=== PATIENT | male | born 1960 | race Caucasian/White ===

== ENCOUNTER 2021-11-27 13:32 | Outpatient (REF) | payer MEDICARE, MEDICAID, SELFPAY ==
--- NOTE | ~2021-11-27 | US_ITS ---
EXAMINATION: US SCROTUM CLINICAL INFORMATION: Right testicular pain. COMPARISON: None. TECHNIQUE: A sonogram of the scrotum was performed assessing campbell-scale appearance and color Doppler flow. Spectral Doppler analysis of the arterial and venous flow were performed in the testes bilaterally. FINDINGS: RIGHT: Right testicle measures 4.0 x 2.2 x 3.3 cm, volume 15.2 mL. Spectral Doppler analysis of the arterial and venous flow is normal in the right testis. Right epididymal head is normal in size. There is a small calcification in tail of epididymis measuring 0.2 x 0.2 x 0.2 cm. There is no hydrocele or varicocele seen. Right epididymal Doppler flow is normal. LEFT: Left testicle measures 4.6 x 2.3 x 2.9 cm, volume 16.0 mL. No focal testicular parenchymal lesions are visualized. Spectral Doppler analysis of the arterial and venous flow is normal in the left testis. Left epididymal head is normal in size. No left varicocele is seen. There is small amount of left hydrocele. Left epididymal Doppler flow is normal. US/US scrotum IMPRESSION: Small right hydrocele. The testes and left epididymis appear unremarkable. There is a focal calcification in the tail of right epididymis.
--- NOTE | ~2021-11-27 | XR_ITS ---
EXAMINATION: XR SHOULDER, LEFT CLINICAL INFORMATION: Left shoulder pain. COMPARISON: Radiograph of the right shoulder dated from 01/02/2019. TECHNIQUE: Four views of the left shoulder. FINDINGS: There is mild acromioclavicular osteoarthritis. Glenohumeral joint is well preserved. No fracture. Alignment is anatomic. Soft tissues are normal with no abnormal calcifications. XR/XR shoulder LT min 2V IMPRESSION: Mild acromioclavicular osteoarthritis. No fracture or malalignment.
== END 2021-11-27 13:33 | disposition home or self-care (01) ==
LOC: HO.US 13:32
PROVIDERS: Visit Provider Internal Medicine
DX: M25.512 Pain in left shoulder (principal); N50.811 Right testicular pain
CPT/HCPCS: 73030; 76870

== ENCOUNTER 2022-01-01 08:01 | Outpatient (REF) | payer MEDICARE, MEDICAID, SELFPAY ==
--- NOTE | ~2022-01-01 | XR_ITS ---
EXAMINATION: XR SHOULDER, LEFT CLINICAL INFORMATION: Pain. COMPARISON: Radiographs dated 11/27/2021. TECHNIQUE: AP neutral, scapular Y, and axillary views of the left shoulder. FINDINGS: Bony alignment and mineralization are normal. The glenohumeral joint is intact. The acromioclavicular and coracoclavicular intervals are normal. There are small calcifications seen at the rotator cuff insertion on the neutral view. There is a small distal acromial undersurface osteophyte. No fracture or dislocation is seen. There is no foreign body. No left pneumothorax is seen. XR/XR shoulder LT min 2V IMPRESSION: 1. No fracture or dislocation is seen. 2. There is mild calcific tendinitis of the left rotator cuff insertion.
== END 2022-01-01 08:02 | disposition home or self-care (01) ==
LOC: HO.HOSX 08:01
PROVIDERS: Visit Provider Physician Assistant
DX: M75.102 Unspecified rotator cuff tear or rupture of left shoulder, not specified as traumatic (principal)
CPT/HCPCS: 20610; 73030; 99202; J1040

== ENCOUNTER 2022-02-13 09:00 | Outpatient (RCR) | payer MEDICARE, MEDICAID, SELFPAY ==
[2022-02-05 08:08] VITALS: BP 120/72; PULSE 87
--- NOTE | 2022-02-05 09:08 | MHC.PT.EP ---
[facility] [place] Office [place] Office [place] Office [address] Kj Castellano [address] [phone] F: [phone] F: [phone] F: [phone] F: [phone] Physical Therapy Plan of Care Date of Evaluation: Date of Surgery: NA Diagnosis: Unspecified rotator cuff tear or rupture of L akhiler, not specified as traumatic Assessment: Lee is a 62 year old male who is referred to PT for unspecified rotator cuff tear or rupture of L corby . Lee reports of having sudden onset shoulder pain about 4 months back. He denies any trauma or fall. Per pt his pain has gotten worse and the cortisone shot has not helped him. On PT examination he presents with generalized ache over L shoulder, 6/10 pain at rest and 10/10 with activities, decreased shoulder ROM and strength, and altered posture. Due to these impairments he has difficulty performing his ADLS and modifies them. He is currently awaiting MRI for shoulder. He would benefit from skilled PT to address the aforementioned impairments and improve tolerance to functional activities. Frequency and Duration: The patient will be seen 2/week for 5 weeks Short Term Goals: 1. Pt will have 50% decrease in pain which will enable him to sleep through night in 2 weeks. 2. Pt will be able to move L shoulder through all planes of motion without pain which will enable him to dress his upper body in 3 weeks. Senior Product Consultant Goals: 1. Pt will demonstrate an increase in muscle strength by 1 grade which will enable him to lift pots and pans without pain in 5 weeks. 2. Pt will be independent with [facility] for symptom management and maintenance following d/c in 5 weeks. Treatment Plan: Modalities to reduce pain, spasms and effusion. Manual therapy to restore motion and function. Therapeutic exercise to improve strength and flexibility. Neuromuscular re-education for posture and balance. Therapeutic activities to return to functional activities of daily living. Electronically signed by: Margo Velez PT DPT Please sign and return to therapist. Thank you for your referral.
--- NOTE | 2022-03-21 08:36 | MHC.PT.DC ---
[facility] [place] Office [place] Office [place] Office [address] Kj Castellano [address] [phone] F: [phone] F: [phone] F: [phone] F: [phone] Physical Therapy Discharge Report Diagnosis: Unspecified rotator cuff tear or rupture of L ramseslder, not specified as traumatic Date of Surgery: NA Date of Evaluation: 02/05/22 Date of Discharge: 03/21/22 Treatments to Date: 2 Cancellations to Date: 0 No Shows to Date: Discharge Status: Patient Elected to Stop Discharge Summary: Lee arrived for his second visit of PT and stated that he would like to stop doing PT until he has an MRI. He self d/c. Electronically signed by: Margo Velez, PT DPT Please sign and return to therapist. Thank you for your referral.
== END 2022-03-28 13:52 | disposition home or self-care (01) ==
LOC: HO.PT 09:00
PROVIDERS: PCP Internal Medicine; Visit Provider Physician Assistant
DX: M75.102 Unspecified rotator cuff tear or rupture of left shoulder, not specified as traumatic (principal)
CPT/HCPCS: 97112; 97161

== ENCOUNTER 2022-04-02 14:29 | Outpatient (REF) | payer MEDICARE, MEDICAID, SELFPAY ==
--- NOTE | ~2022-04-02 | MR_ITS ---
EXAMINATION: MR SHOULDER WITHOUT CONTRAST, LEFT CLINICAL INFORMATION: Left shoulder pain. Decreased range of motion. COMPARISON: Left shoulder radiographs dated 01/01/2022. TECHNIQUE: Multisequence MR imaging of the left shoulder was obtained without contrast on a high-field strength scanner. FINDINGS: ROTATOR CUFF: Intact. No muscle atrophy or fatty infiltration. BICEPS: Intact proximal long head biceps tendon. Mild fluid within the tendon sheath consistent with mild tenosynovitis. CORACOACROMIAL ARCH: The undersurface of the acromion is minimally curved with no subacromial spur. Prominent acromioclavicular marginal osteophytes and trace joint effusion. LABRUM/CAPSULE: No displaced labral tear. Mild capsular thickening and edema which can be seen in the setting of adhesive capsulitis. GLENOHUMERAL JOINT/MARROW: Unremarkable. MR/MR shoulder LT wo con IMPRESSION: 1. Mild capsular thickening and edema which can be seen in the setting of adhesive capsulitis. 2. Mild proximal long head biceps tenosynovitis. No transverse tendon tear or tendon retraction. 3. [id number] acromioclavicular osteoarthritis.
== END 2022-04-02 14:30 | disposition home or self-care (01) ==
LOC: HO.MRI 14:29
PROVIDERS: Visit Provider Internal Medicine
DX: M25.512 Pain in left shoulder (principal)
CPT/HCPCS: 73221

== ENCOUNTER → 2022-05-04 10:36 | Outpatient (BNVA) | payer MEDICARE, MEDICAID, SELFPAY | PROVIDERS: PCP Internal Medicine; Visit Provider Physician Assistant | DX: M75.102 Unspecified rotator cuff tear or rupture of left shoulder, not specified as traumatic (principal) | CPT/HCPCS: 99212; J1040 ==

== ENCOUNTER 2022-08-17 13:39 | Outpatient (REF) | payer MEDICARE, MEDICAID, SELFPAY ==
--- NOTE | ~2022-08-17 | CT_ITS ---
EXAMINATION: CT CHEST SCREENING CLINICAL INFORMATION: F17.210 - Nicotine dependence, cigarettes, uncomplicated. Age 62. 48 pack years. COMPARISON: Chest radiographs 09/08/2006. TECHNIQUE: Multidetector volumetric CT imaging of the chest is performed without contrast using low dose technique. Additional 2D coronal and sagittal reformatted images and axial 3D maximum intensity projection (MIP) images are generated on the CT workstation. This CT examination was performed using dose optimization techniques as appropriate, variously including the following: *Automated exposure control *Adjustment of mA and/or kV according to patient size (this includes techniques or standardized protocols for targeted exams where dose is matched to indication/reason for exam; i.e. extremities or head) *Use of iterative reconstruction technique DLP: 51 mGy-cm FINDINGS: LUNGS: There is no mass or pulmonary nodule. No airspace consolidation or groundglass opacity. Bilateral predominantly upper zone centrilobular emphysematous changes are present, slightly greater on the right. There are some small bilateral subpleural apical blebs. No hyperinflation. There is mild bronchiolar wall thickening bilateral perihilar regions. No bronchiectasis. No endobronchial lesion. MEDIASTINUM: No hilar or mediastinal adenopathy. Thoracic aorta normal in caliber. Heart size normal. No pericardial effusion. CORONARY ARTERY CALCIFICATION: Present. PLEURA: There is no pleural effusion. No pleural mass or thickening. AXILLA: No lymphadenopathy. UPPER ABDOMEN: Unremarkable OSSEOUS STRUCTURES: Unremarkable. CT/CT lung screening IMPRESSION: -No pulmonary nodule, mass, or groundglass opacity. -Upper zone centrilobular emphysematous changes. Subpleural apical blebs. -Mild bronchiolar wall thickening. No bronchiectasis. ASSESSMENT: Lung-RADS category 1: Negative RECOMMENDATION: Routine annual low-dose CT screening in 12 months.
== END 2022-08-17 13:40 | disposition home or self-care (01) ==
LOC: HO.CT 13:39
PROVIDERS: PCP Internal Medicine; Visit Provider Physician Assistant Medical
DX: F17.210 Nicotine dependence, cigarettes, uncomplicated (principal)
CPT/HCPCS: 71271; G0296

== ENCOUNTER 2023-05-01 12:42 | Outpatient (AMB) | payer MEDICARE, MEDICAID, SELFPAY ==
--- NOTE | 2023-05-01 12:47 | MHC.OFFVIS ---
Intake Vital Signs 05/01/23 12:50 Height 5 ft 7 in Weight 180 lb BMI 28.2 BP 114/63 Blood Pressure Location Lt brachial Position Sitting Pulse 99 Intake Visit Reasons: Colonoscopy Screening +Cologuard Intake Note: Patient new consult for pre colonoscopy screening. Patient cc: positive cologuard, and denies any GI issues. Licensing Court Magistrate Required: No Accompanied by: Self / Same As Patient Allergies No Known Allergies [No Known Allergies*] Allergy (Verified 05/01/23 12:47) Medication List - Last Reconciled 05/01/23 by Robina Zuniga PA-C hydroxyzine HCl 25 mg PO BID lisinopril-hydrochlorothiazide 10-12.5 mg 1 tab PO DAILY oxycodone-acetaminophen 5-325 mg 1 tab PO QID PRN HPI HPI Comments History of Present Illness Details A 63 y/o male with positive cologuard - he says his insurance rejected a colonoscopy- had cologuard-no GI complaints No known family history of GI cancer Bowels are normal- Appetite is good His has been ill- multiple cancers No nausea, vomiting, hematemesis, hematochezia fever or chills PFSH Medical History (Updated 05/02/23 @ 13:55 by Robina Zuniga PA-C) Nicotine dependence, cigarettes, uncomplicated High blood pressure Surgical History History of right knee surgery Social History Patient Tobacco Use Status: Current everyday Tobacco user Tobacco use type: Cigarette Years Smoked: onset 18yo, 1ppd x 44yrs, 40PYH Current occupational status: disabled Current occupation: left handed Review of Systems Const All systems reviewed & are unremarkable except as noted in HPI and below Card Denies chest pain and Denies dyspnea Resp Denies dyspnea GI Denies abdominal pain, Denies change in bowel habits, Denies heartburn, Denies diarrhea, Denies nausea and Denies vomiting Physical Exam Vital Signs: Last Vital Signs Pulse 99 05/01/23 12:50 BP 114/63 05/01/23 12:50 BMI result Body Mass Index 28.2 Const General: cooperative, healthy appearing and comfortable Orientation/consciousness: patient oriented x3 Limitations: no limitations Eyes Sclerae: sclerae normal Resp Effort & Inspection: normal respiratory effort and able to speak in complete sentences Auscultation: clear to auscultation bilaterally, no rales, no rhonchi and no wheezes Cardio Rate: regular rate (APR 100-) Rhythm: regular rhythm Heart sounds: S1 normal heart sound present and S2 normal heart sound present GI Palpation (GI): Soft to palpation and nontender Auscultation: normal bowel sounds Skin General skin exam: no rashes or lesions noted Neuro General: patient oriented x3 Extrem General: Yes full ROM Psych Appearance: grossly normal and well kempt Mental Status: mental status grossly normal Speech and movement: Normal speech and movement present and Clear speech present Affect: normal affect Attitude: cooperative Thought process: Normal thought process present Thought content: Normal thought content present Insight: Good insight present (Psych) Judgement: Good judgement present (Psych) Assessment & Plan Assessment & Plan (1) Positive colorectal cancer screening using Cologuard test: Comment: Of Cologuard- Code(s): R19.5 - Other fecal abnormalities Plan: Colonoscopy Plan Colonoscopy- MG prep Orders: Orders Colonoscopy - GI Use Only 05/01/23 R19.5 - Other fecal abnormalities Medications: New polyethylene glycol 3350 (Miralax) Take as directed by mouth the day before your procedure. 238 grams PO ONCE 1 day PRN 238 grams 0RF laxative effect bisacodyl (Dulcolax (bisacodyl)) Day before procedure, prep day Take 4 tablets by mouth upon awakening followed by large glass of water 20 mg (4 x 5 mg) PO ONCE 1 day 4 tabs 0RF colonoscopy prep Z12.11 - Encounter for screening for malignant neoplasm of colon Patient Instructions: Pleasant 61-year-old Gent referred with after positive Cologuard He has no GI symptoms or concerns Family history of GI cancer Opportunity for questions answered to his satisfaction Review Cologuard results positive however needs to have further evaluation-there are certain percentage of follows positives as well as false negatives He is agreeable to colonoscopy, discussed procedure, rare risks, need for escorted due to anesthesia and prep literature given Reassurance offered Encouraged to call questions or concerns Coding Level of Care Code New Pt Level 3 (77412) Diagnoses Positive colorectal cancer screening using Cologuard test R19.5 Time Spent (min) 30
[2023-05-01 12:50] VITALS: BP 114/63; PULSE 99; BMI 28.2
== END 2023-05-01 13:50 | disposition home or self-care (01) ==
PROVIDERS: PCP Internal Medicine; Visit Provider Physician Assistant
DX: R19.5 Other fecal abnormalities (principal)
CPT/HCPCS: 99203; 99213

== ENCOUNTER → 2023-05-01 12:42 | Outpatient (BNVA) | payer MEDICARE, MEDICAID, SELFPAY | PROVIDERS: PCP Internal Medicine; Visit Provider Physician Assistant | DX: R19.5 Other fecal abnormalities (principal) | CPT/HCPCS: 99202 ==

== ENCOUNTER 2023-08-22 09:43 | Day surgery (SDC) | payer MEDICARE, MEDICAID, SELFPAY ==
[2023-08-20 14:28] VITALS: BMI 28.2
--- NOTE | 2023-08-21 10:51 | HO.ANESPROP2 ---
Documented by User: Nadira Brasher NP 08/21/23 10:52 HPI - Anesthesia Eval Consult details Narrative: 63yo M for Colonoscopy PMFSH Active Problems Active Problems: All Active Problems (Updated 05/02/23 @ 13:55 by Robina Zuniga PA-C) Positive colorectal cancer screening using Cologuard test (Acute) Nicotine dependence, cigarettes, uncomplicated (Acute) Painful arc syndrome of left shoulder (Acute) Past Medical History Medical History Nicotine dependence, cigarettes, uncomplicated High blood pressure Surgical History Surgical History History of right knee surgery Social History Social History Patient Tobacco Use Status: Current everyday Tobacco user Tobacco use type: Smokeless Tobacco Years Smoked: onset 18yo, 1ppd x 44yrs, 40PYH Current occupational status: disabled Current occupation: left handed Meds Allergies Allergy/AdvReac Type Severity Reaction Status Date / Time No Known Allergies Allergy Verified 05/01/23 12:47 [No Known Allergies*] Home Medications Medication Instructions Recorded Confirmed Last Taken Type lisinopril 10 1 tab PO DAILY 01/01/22 08/20/23 08/22/23 History mg-hydrochlorothiazide 12.5 mg tablet oxycodone-acetaminophen 5 mg-325 1 tab PO QID PRN Pain 01/01/22 08/20/23 Unknown History mg tablet Exam Height,Weight and Vital Signs: Height 5 ft 7 in Weight 81.647 kg Assessment and Plan Assessment Anesthesia Assessment: Chart Reviewed Documented by User: Mahi Marie MD 08/22/23 13:30 PMFSH Active Problems Active Problems: All Active Problems (Updated 05/02/23 @ 12:14 by Mahi Marie MD) Positive colorectal cancer screening using Cologuard test (Acute) Nicotine dependence, cigarettes, uncomplicated (Acute) Painful arc syndrome of left shoulder (Acute) HTN Back and neck pain Past Medical History Medical History Nicotine dependence, cigarettes, uncomplicated High blood pressure Family History Family history of problems with anesthesia: No Surgical History Surgical History History of right knee surgery History of Problems with Anesthesia: No Social History Social History Patient Tobacco Use Status: Current everyday Tobacco user Tobacco use type: Smokeless Tobacco Years Smoked: onset 18yo, 1ppd x 44yrs, 40PYH Current occupational status: disabled Current occupation: left handed Meds Allergies Allergy/AdvReac Type Severity Reaction Status Date / Time No Known Allergies Allergy Verified 05/01/23 12:47 [No Known Allergies*] Home Medications Medication Instructions Recorded Confirmed Last Taken Type lisinopril 10 1 tab PO DAILY 01/01/22 08/20/23 08/22/23 History mg-hydrochlorothiazide 12.5 mg tablet oxycodone-acetaminophen 5 mg-325 1 tab PO QID PRN Pain 01/01/22 08/20/23 Unknown History mg tablet Exam Height,Weight and Vital Signs: Height 5 ft 7 in Weight 81.647 kg Vital Signs Temp Pulse Resp BP Pulse Ox O2 Del Method O2 Flow Rate 08/22/23 13:22 73 16 154/87 H 98 Room Air 08/22/23 13:07 97 F 78 16 165/89 H 100 Simple Mask 6 08/22/23 10:29 98 F 102 H 19 117/87 97 Nasal Cannula Airway Mallampati Class: II TM Dist: >3cm Neck ROM: Full Denture: Upper and Lower Loose/Missing/Broken Teeth: Yes (Full dentures) Heart: RRR Lungs: CTAB Assessment and Plan Assessment Anesthesia Assessment: Anesthesia Plan Discussed and Chart Reviewed Final Anesthetic Review Family History of Problems with Anesthesia: No History of Problems with Anesthesia: No NPO: Yes ASA Class: II Final Preanesthetic Review: No Changes in Pt Med Stat, Meds/Allgs Chart Reviewed, Consent Obtained/Reviewed and Anes Risks/Benef Reviewed Patient Risk: Low Procedure Risk: Low Assessment/Block/Sedation in SS: Assess/Block/Sedation-SS Anesthetic Plan Anesthetic Plan: MAC: and TIVA Disposition: Standard PACU
[2023-08-22 10:29] VITALS: BP 117/87; PULSE 102; RESP 19; TEMP 36.6; O2SAT 97; BMI 28.2
[2023-08-22] MEDS: Lactated Ringers 1,000 ML 100 ML IVCONT (10:41)
--- NOTE | 2023-08-22 11:14 | MHC.SHP ---
Pre-Procedural Eval Section A - 24 Hr Update-Section A only Date of Service: 08/22/23 Section B - Complete if H&P > 30 days Chief Complaint: Other fecal abnormalities Details of Present Illness: pos cologuard Relevant Family History (Specify if Yes): No Relevant Social History: Tobacco Use (vaping ) Present Medications: see Short Stay Collaborative assessment Medical History: Significant History (htn, smoking, ) History of Previous Operations: Relevant previous surgery/procedure and date(s) ( History of right knee surgery) Allergies: Allergies Allergy/AdvReac Type Severity Reaction Status Date / Time No Known Allergies Allergy Verified 05/01/23 12:47 [No Known Allergies*] Review of Systems Sugical H&P ROS: Negative: Constitution, Cardiovascular, Respiratory, Neurological, Psychiatric, Hem-Onc, Allergic/Immunologic, Gastrointestinal, Genitourinary, Musculoskeletal, Integumentary, Endocrine and Eyes/Ears/Nose/Throat Exam Surgical H&P Exam: Normal: HEENT, Normal: Heart, Normal: Lungs, Normal: Extremities, Normal: Abdomen, Normal: Skin and Normal: Neurological Plan Diagnosis/Plan: Unchanged I have reviewed the history and physical and performed a pertinent physical examination on my patient. No changes have occurred unless specified. Time Spent With Patient Time: Total time managing care of this patient today ____ minutes.
--- NOTE | 2023-08-22 13:02 | P.OP_ITS ---
Operative Note Operative Note Date of Service: 08/22/23 Narrative: Operative Information Procedure Description: Colonoscopy Indication: pos cologuard Anesthesia: MAC COLONOSCOPY Instrument: Olympus variable stiffness pediatric scope 190L Colonoscopy Monitoring: Vital signs and clinical assessment, continuous EKG monitoring, Pulse oximetry, Carbon Dioxide monitoring and blood pressure monitoring were done throughout the procedure. Colon withdrawal time was 15 minutes. Procedure: The patient was placed in the left lateral decubitis position and pre-procedure medications were administered. After a digital rectal examination of the ano-rectum, the video colonoscope was inserted into the rectum and advanced through the colon to the cecum/TI. The colonoscope was slowly withdrawn in a retrograde panoramic fashion and the colon mucosa was carefully examined including a retroflexed view of the rectum. Findings and interventions are described below. Procedure Difficulty: easy Findings: Terminal Ileum-normal Cecum: flat polyp 10 mm raised with eleview and then removed with cold snare Right sided retroflexion- normal Ascending Colon: normal Transverse Colon -normal Descending Colon:normal Sigmoid Colon: mild diverticulosis, 10 mm sessile polyp removed with cold snare Rectum: Retroflexion with medium sized internal hemorrhoids, grade I Anorectum - normal Colon preparation: [place] Bowel Preparation Scale Right colon; 2 Transverse colon: 3 Left colon; 3 (0 = Unprepared colon segment with mucosa not seen due to solid stool that cannot be cleared. 1 = Portion of mucosa of the colon segment seen, but other areas of the colon segment not well seen due to staining, residual stool and/or opaque liquid. 2 = Minor amount of residual staining, small fragments of stool and/or opaque liquid, but mucosa of colon segment seen well. 3 = Entire mucosa of colon segment seen well with no residual staining, small fragments of stool or opaque liquid) Impression and Post Procedure Diagnosis: polyps internal hemorrhoids diverticular disease Plan: High fiber diet leaflet Avoid straining at stool, epsom salts and sitz bath, anusol supps or cream Repeat Colonoscopy in 5 years due to polyps or earlier if clinically indicated Above findings were reviewed with the patient and relevant handouts were provided if indicated.
[2023-08-22 13:07] VITALS: BP 165/89; PULSE 78; RESP 16; TEMP 36.1; O2SAT 100
[2023-08-22 13:22] VITALS: BP 154/87; PULSE 73; RESP 16; O2SAT 98
[2023-08-22 13:37] VITALS: BP 152/74; PULSE 76; RESP 16; TEMP 36.2; O2SAT 98
[2023-08-22 13:53] VITALS: BP 148/71; PULSE 76; RESP 16; TEMP 36.2; O2SAT 98
== END 2023-08-22 14:11 | disposition home or self-care (01) ==
PROVIDERS: PCP Internal Medicine; Visit Provider Internal Medicine Gastroenterology
PROC: 0DJD8ZZ Inspection of Lower Intestinal Tract, Via Natural or Artificial Opening Endoscopic (ICD-10-PCS; CPT 45378; principal; 2023-08-22 12:30)
DX: D12.0 Benign neoplasm of cecum (principal); D12.5 Benign neoplasm of sigmoid colon; K57.30 Diverticulosis of large intestine without perforation or abscess without bleeding; K64.0 First degree hemorrhoids; R19.5 Other fecal abnormalities; I10 Essential (primary) hypertension; F17.210 Nicotine dependence, cigarettes, uncomplicated
CPT/HCPCS: 45385; 45381; 88305; J2704

== ENCOUNTER → 2023-08-22 09:43 | Outpatient (BNV) | payer MEDICARE, MEDICAID, SELFPAY | PROVIDERS: PCP Internal Medicine; Visit Provider Internal Medicine Gastroenterology | DX: Z12.11 Encounter for screening for malignant neoplasm of colon (principal); R19.5 Other fecal abnormalities; D12.0 Benign neoplasm of cecum; D12.5 Benign neoplasm of sigmoid colon | CPT/HCPCS: 45381; 45385 ==

== ENCOUNTER 2023-08-31 07:38 | Outpatient (REF) | payer MEDICARE, MEDICAID, SELFPAY ==
--- NOTE | ~2023-08-31 | XR_ITS ---
EXAMINATION: XR RIBS, RIGHT WITH AP CHEST CLINICAL INFORMATION: Right rib cage pain status-post fall. COMPARISON: Chest radiographs dated 09/08/2006. TECHNIQUE: 5 views of the right ribs were obtained, together with a frontal view of the chest. FINDINGS: Lungs are clear. No consolidation, pneumothorax, or pleural effusion. The cardiomediastinal silhouette and pulmonary vasculature are normal. Mildly displaced fractures are suspected of the right fifth through seventh ribs on one of the oblique views there is mild associated periosteal reaction. XR/XR ribs RT min 3V w CXR1V IMPRESSION: Mildly displaced fractures are suspected of the right fifth through seventh ribs, with mild associated periosteal reaction. No pleural effusion or pneumothorax is seen.
--- NOTE | ~2023-08-31 | XR_ITS ---
EXAMINATION: XR SHOULDER, RIGHT CLINICAL INFORMATION: Pain status-post fall. COMPARISON: Radiographs dated 01/02/2019. TECHNIQUE: AP external rotation, Grashey, scapular Y, and axillary views of the right shoulder. FINDINGS: Bony alignment and mineralization are normal. The glenohumeral joint is intact. The acromioclavicular and coracoclavicular intervals are normal. There is mild osteoarthritic change of the acromioclavicular joint. There is a distal acromial undersurface osteophyte, and there is subcortical sclerosis of the greater tuberosity of the proximal right humerus. No soft tissue calcification or foreign body is seen. There is no right pneumothorax. XR/XR shoulder RT min 2V IMPRESSION: 1. There is mild osteoarthritic change of the right acromioclavicular joint. 2. Findings suggest mild right rotator cuff impingement, without claudia calcific tendinitis noted.
== END 2023-08-31 07:39 | disposition home or self-care (01) ==
LOC: HO.XRAY 07:38
PROVIDERS: PCP Internal Medicine; Visit Provider Internal Medicine
DX: M25.511 Pain in right shoulder (principal); R07.81 Pleurodynia
CPT/HCPCS: 71101; 73030

== ENCOUNTER 2024-01-06 07:58 | Outpatient (REF) | payer MEDICARE, MEDICAID, SELFPAY ==
--- NOTE | ~2024-01-06 | CT_ITS ---
EXAMINATION: CT LOW-DOSE SCREENING CHEST WITHOUT CONTRAST CLINICAL INFORMATION: Nicotine dependence, cigarettes, uncomplicated. The patient has a 43 pack-year history of smoking, having quit 1 year ago. COMPARISON: CT chest 08/17/2022. TECHNIQUE: Multidetector volumetric CT imaging of the chest is performed on a Siemens SOMATOM Definition scanner without contrast using low dose technique. Additional 2D coronal and sagittal reformatted images and axial 3D maximum intensity projection (MIP) images are generated on the CT workstation. This CT examination was performed using dose optimization techniques as appropriate, variously including the following: *Automated exposure control *Adjustment of mA and/or kV according to patient size (this includes techniques or standardized protocols for targeted exams where dose is matched to indication/reason for exam; i.e. extremities or head) *Use of iterative reconstruction technique TOTAL EXAM DLP: 62 mGy-cm. CTDIvol: 1.59 mGy. FINDINGS: PULMONARY NODULES: (As seen on series 5) -There are a few tiny 2 mm calcified granulomata in both lungs, benign. -There are no right-sided pulmonary nodules. -There are no left-sided pulmonary nodules. LUNGS: -Moderate centrilobular emphysematous changes are present with upper lobe predominance. -No superimposed consolidations or abnormal groundglass opacities. -No bronchiectasis or airway abnormalities. Minimal thickening small airways, without endobronchial filling defect. Central airways patent. -No pleural effusion or pleural mass. MEDIASTINUM: -No thyroid abnormality by CT. -Aorta is normal in caliber and course with mild to moderate atheromatous calcification. No aneurysm. -Aortic 3 vessel branching pattern. -Main pulmonary artery is normal in size. -There is no suspicious mediastinal or hilar lymphadenopathy. -Heart size is normal. No pericardial effusion. -Esophagus is normal. -Trachea and main bronchi are normal. CORONARY ARTERY CALCIFICATION: Moderate to heavy three-vessel coronary calcification, most significant proximal LAD and RCA. CHEST WALL/AXILLA: No masses or abnormal lymph nodes. UPPER ABDOMEN: Included portions of the solid organs in the upper abdomen unremarkable on noncontrast imaging. OSSEOUS STRUCTURES: No suspicious lytic or blastic bone lesion. -Mild spinal degenerative changes. -Old right anterior rib fractures. CT/CT lung screening IMPRESSION: 1. Overall stable examination. No suspicious pulmonary nodules, new nodules or enlarging nodules. Scattered calcified granulomata are benign. 2. Moderate centrilobular emphysema with upper lobe predominance. 3. No active lung disease. 4. There is no suspicious lymphadenopathy. 5. Minimal small airway thickening without bronchiectasis or endobronchial filling defects. Findings may represent minimal bronchitis. 6. Additional ancillary findings as discussed in the body of the report. ASSESSMENT: 1. Lung-RADS Category 1: Negative. There are no nodules or there are definitely benign nodules. 2. Lung-RADS Category S: None. RECOMMENDATION: Continued routine annual low-dose CT lung screening in 1 year is recommended. An order for CT CHEST LOW DOSE CANCER SCREENING ([id number]) can be placed.
== END 2024-01-06 07:59 | disposition home or self-care (01) ==
LOC: HO.CT 07:58
PROVIDERS: Visit Provider Physician Assistant Medical
DX: Z12.2 Encounter for screening for malignant neoplasm of respiratory organs (principal); F17.210 Nicotine dependence, cigarettes, uncomplicated
CPT/HCPCS: 71271

== ENCOUNTER 2024-05-29 15:47 | Outpatient (REF) | payer MEDICARE, MEDICAID, SELFPAY ==
[2024-05-29 17:48] LABS: MANUAL DIFF FLAG NO
[2024-05-29 17:54] LABS: Basophils Absolute Auto 0.1 X10*3/uL (0.0-0.2); Basophils Percent Auto 1.1 % (0-2); Eosinophils Absolute Auto 0.2 X10*3/uL (0.0-0.4); Eosinophils Percent Auto 2.9 % (0-4); Hematocrit 45.7 % (42.0-52.0); Hemoglobin 15.7 g/dl (14.0-18.0); Imm Gran Abs Auto 0.03 X10*3/uL (0.00-0.03); Imm Gran Pct Auto 0.4 % (0.0-0.4); Lymphocytes Absolute Auto 1.9 X10*3/uL (1.2-4.9); Lymphocytes Percent Auto 25.2 % (20-40); Mean Corpuscular HGB Conc 34.4 g/dl (31.0-36.0); Mean Corpuscular Hemoglobin 30.8 pg (27.0-33.0); Mean Corpuscular Volume 89.8 fL (80.0-98.0); Mean Platelet Volume 10.7 fL (9.4-12.4); Monocytes Absolute Auto 0.9 X10*3/uL (0.1-1.2); Monocytes Percent Auto 11.6 % (2-11); Neutrophils Absolute Auto 4.4 x10*3/uL (2.0-8.3); Neutrophils Percent Auto 58.8 % (45-73); Platelet Count 284 X10*3/uL (160-400); Red Blood Count 5.09 X10*6/uL (4.60-5.80); Red Cell Distribution Width 11.9 % (11.0-16.0); White Blood Count 7.5 X10*3/uL (4.8-10.8)
[2024-05-29 18:11] LABS: Alanine Aminotransferase 23 U/L (0-40); Albumin Level 4.3 g/dL (3.5-5.0); Alkaline Phosphatase 27 U/L (39-117); Anion Gap 12 (12-20); Aspartate Amino Transferase 21 U/L (5-37); Bilirubin Total 0.4 mg/dL (0.0-1.0); Blood Urea Nitrogen 11 mg/dL (9-16); Carbon Dioxide 30 mmol/L (22-29); Chloride 101 mmol/L (96-108); Cholesterol 148 mg/dL (<200); Estimated Glomerular Filt Rate > 60; Glucose Random 110 mg/dL (60-115); HDL Cholesterol 35 mg/dL (>40); LDL Cholesterol Calculated 68 mg/dL (<100); Potassium 3.8 mmol/L (3.3-5.1); Sodium 139 mmol/L (135-145); Total Protein 7.5 g/dL (6.5-8.0); Triglycerides 229 mg/dL (<150)
[2024-05-29 18:26] LABS: TSH reflex Free T4 0.64 uIU/mL (0.32-4.0)
== END 2024-05-29 15:48 | disposition home or self-care (01) ==
LOC: HO.CHCLDS 15:47
PROVIDERS: Visit Provider Internal Medicine
DX: I10 Essential (primary) hypertension (principal); F41.9 Anxiety disorder, unspecified
CPT/HCPCS: 36415; 80053; 80061; 84443; 85025

== ENCOUNTER 2024-08-26 10:37 | Outpatient (REF) | payer MEDICARE, MEDICAID, SELFPAY ==
--- OUTSIDE RECORDS SUMMARY | 2024-08-26 12:39 | XMS_ITS | Encounter Summary ---
Author Organization [employer] Address [address] [facility] [address] [place] [address] Care Team Providers Care Homicide Investigator Name Role Phone Padmaja Davila MD Primary Care Provider [phone] Encounter Details Date Type Department Care Team ([facility] st Contact Info) Description 09/06/2023 Orders Only [facility] [address], [place] [phone] Padmaja Davila MD [address] [place], [place] [phone] Social History Tobacco Use Types Packs/Day Years Used Date Smoking Tobacco: Former Cigarettes 1 43 Smokeless Tobacco: Never Comments:Now vape. Has been vaping x the last 3 weeks. One Cartridge last 5 to 7 days. Alcohol Use Standard Drinks/Week Comments Not Currently 0 (1 standard drink = 0.6 oz pur e alcohol) Depression Answer Date Recorded Patient Health Questionnaire-9 Score 6 12/11/2022 Housing Stability Answer Date Recorded What is your housing situation today? I have ayla arenas 04/11/[address] you li ve. Do you have problems with any of the following? None of the above 04/11/2023 Food Insecurity Answer Date Recorded Within the past 12 months, y ou worried that your food would run out before you got money to buy more: Never True 04/11/2023 Within the past 12 months,th e food you bought just didn't last and you didn't have enough money to get more: Never True Transportation Answer Date Recorded In the past 12 months, has l ack of transportation kept you from medical appts, meetings, work or from getting things needed for daily living? No 04/11/2023 Utilities Answer Date Recorded In the past 12 months, has t he electric, gas, oil or water company threatened to shut off services in your home? No 04/11/2023 Depression Answer Date Recorded Patient Health Questionnaire-2 Score 0 12/11/2022 Sex and Gender Information Value Date Recorded Sex Assigned at Male 04/23/2022 10:18 AM EDT Legal Sex Male 10:18 AM EDT Gender Identity Male 04/23/2022 10:18 AM EDT Sexual Orientation Straight 04/23/2022 10 :18 AM EDT documented as of this encounter Plan of Treatment Upcoming Encounters Date Type Department Care Team (Late st Contact Info) Description 09/24/2024 9:00 AM EDT Clinical Support [facility] [address] [place] [address] Reba Garcia, CAROLINE [address] [place] [address] documented as of this encounter Visit Diagnoses Not on filedocumented in this encounter Additional Health Concerns Assessment Noted Time PHQ-9 Depression Total Score: 6 12/12/19 23 9:45 AM EDT documented as of this encounter Care Teams Homicide Investigator Relationship Specialty Start Date End Date Padmaja Davila MD [address] [place] [address] PCP - General Internal Medicine 11/16/11 documented as of this encounter
--- OUTSIDE RECORDS SUMMARY | 2024-08-26 12:40 | XMS_ITS | Clinical Summary ---
Author Organization [employer] Address [address] [place] [address] 7 [place] [address] Care Team Providers Care Duplicating Machine Servicer Name Role Phone Padmaja Davila MD Primary Care Provider Allergies No known active allergies Medications ibuprofen 800 MG tablet TAKE ONE TABLET TWICE DAILY NEEDED FOR PAIN 60 tablet 1 09/12/19 24 Active oxyCODONE-acetam inophen (Percocet) 5-325 MG tabletIndication s:Chronic pain syndrome TAKE ONE TABLET EVERY 6 HOURS NEEDED 84 tablet 06/23/20 24 Active oxyCODONE-acetam inophen (Percocet) 5-325 MG tabletIndication s:Chronic pain syndrome TAKE ONE TABLET EVERY 6 HOURS NEEDED 84 tablet 08/04/19 25 Active lisinopril-hydro CHLOROthiazide 10-12.5 MG tabletIndication s:Essential (primary) hypertension Take 1 tablet by mouth Once per day. 90 tablet 1 08/11/19 25 Active oxyCODONE-acetam inophen (Percocet) 5-325 MG tabletIndication s:FINANCIAL INVESTMENT ADVISER checked 05/31/22 Take 1 tablet by mouth every 6 (six) hours for 21 days. 1 tables every 6 hours as needed 84 tablet 08/25/19 25 025 Active lisinopril-hydro CHLOROthiazide 10-12.5 MG tabletIndication s:Essential (primary) hypertension TAKE ONE TABLET EVERY DAY 90 tablet 1 02/25/20 24 025 Discontinued(Re order (will not trigger notification to Pharmacy)) oxyCODONE-acetam inophen (Percocet) 5-325 MG tabletIndication s:FINANCIAL INVESTMENT ADVISER checked 05/31/22 Take 1 tablet by mouth every 6 (six) hours for 21 days. 1 tables every 6 hours as needed Do not start before July 13, 2024. 84 tablet 07/13/19 25 025 Discontinued oxyCODONE-acetam inophen (Percocet) 5-325 MG tabletIndication s:FINANCIAL INVESTMENT ADVISER checked 05/31/22 Take 1 tablet by mouth every 6 (six) hours for 21 days. 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/25/2021 Nicotine dependence 01/25/2021 Chondromalacia 06/11/2016 Old tear of medial meniscus 06/11/2016 Hypertensive disorder 07/28/2015 Backache 08/09/2011 Displacement of lumbar inter vertebral disc without myelopathy 03/05/2011 Anxiety state 11/14/2010 Pain in limb 11/14/2010 Depressive disorder 09/08/2010 Encounters Date Type Department Care Team Description 08/26/2024 9:45 AM EST Office Visit [facility] [address] [place] [address] Padmaja Davila MD Anxiety state (Primary Dx); Primary hypertension; Hypertriglyceridemia; Dietary counseling; Exercise counseling; Overweight 08/26/2024 Travel 08/24/2024 Travel 08/24/2024 Telephone [facility] [address] [place] [address] Padmaja Davila MD Appointment Request 08/24/2024 Refill [facility] [address] [place] [address] Padmaja Davila MD Chronic pain syndrome 08/19/2024 Travel 08/08/2024 Refill [facility] [address] [place] [address] Padmaja Davila MD Essential (primary) hypertension 08/06/2024 Travel 08/03/2024 Refill [facility] [address] [place], [place] [phone] Padmaja Davila MD Chronic pain syndrome 08/03/2024 Refill [facility] [address] [place] [address] Padmaja Davila MD Chronic pain syndrome 07/09/2024 Refill [facility] [address] [place] [address] Padmaja Davila MD Chronic pain syndrome 06/22/2024 Refill [facility] [address] [place] [address] Cheryle Heaton MD Chronic pain syndrome 06/22/2024 Refill [facility] [address] [place] [address] Cheryle Heaton MD Chronic pain syndrome 06/01/2024 Telephone [facility] [address] [place] [address] Padmaja Davila MD 06/01/2024 Refill [facility] [address] [place] [address] Reba Garcia RN Chronic pain syndrome 06/01/2024 Telephone [facility] [address] [place] [phone] Padmaja Davila MD Med Refill 05/29/2024 3:15 PM EST Office Visit [facility] [address] [place] [address] Padmaja Davila MD Primary hypertension (Primary Dx); Anxiety state 05/29/2024 Travel from Last 3 Months Immunizations Name Administration Dates Next Due Influenza injectable quadriv alent IIV4 with preservative 03/22/2015 Influenza injectable quadriv alent preservative free 03/13/2023,08/24/2021,06/02/2020,2018,05/31/2016 Influenza, IIV3, injectable 03/27/2018, 7,04/12/2014 Influenza, Injectable, MDCK, preservative free 05/13/2024 Influenza, Split (incl. nicolasa fied surface antigen) 05/06/2013,03/13/2012 Moderna Covid-19 Vaccine 12+ 11/10/2020,10/14/19 21 Pfizer Covid-19 Vaccine 12+ 05/13/2024 RSV Adjuvant 06/21/2023 RSV-MAB, Unspecified 06/22/2023 Td (adult), unspecified 04/24/2002 Tdap 12/27/2017,10/19/2015 Zoster, Recombinant 06/03/2019,03/25/2019 Family History Medical History Relation Name Comments Diabetes Brother Diabetes Maternal Grandmother Heart attack Mother Relation Name Status Comments Brother Maternal Grandmother Mother Social History Tobacco Use Types Packs/Day Years Used Date Smoking Tobacco: Former Cigarettes 1 43 Smokeless Tobacco: Never Tobacco Cessation:Counseling Given: Not Answered Comments:Now vape. Has been vaping x the last 3 weeks. One Cartridge last 5 to 7 days. Alcohol Use Standard Drinks/Week Comments Not Currently 0 (1 standard drink = 0.6 oz pur e alcohol) Depression Answer Date Recorded Patient Health Questionnaire-9 Score 13 08/26/2024 Patient Health Questionnaire-9 Score 13 08/26/2024 Last PHQ-9: Questionnaire Data Not on file 0 08/26/2024 Housing Stability Answer Date Recorded What is your housing situation today? I have ayla dagoberto 08/26/[address] you li ve. Do you have problems with any of the following? None of the above 08/26/2024 Food Insecurity Answer Date Recorded Within the past 12 months, y ou worried that your food would run out before you got money to buy more: Never True 08/26/2024 Within the past 12 months,th e food you bought just didn't last and you didn't have enough money to get more: Never True 10/2024 Transportation Answer Date Recorded In the past 12 months, has l ack of transportation kept you from medical appts, meetings, work or from getting things needed for daily living? No 08/26/2024 Utilities Answer Date Recorded In the past 12 months, has t he electric, gas, oil or water company threatened to shut off services in your home? No 08/26/2024 Depression Answer Date Recorded Patient Health Questionnaire-2 Score 2 08/26/2024 Internet Access Answer Date Recorded Internet Access Q1 Yes 08/26/2024 Internet Access Q2 Not on file 08/26/2024 Sex and Gender Information Value Date Recorded Sex Assigned at Male 04/23/2022 10:18 AM EDT Legal Sex Male 10:18 AM EDT Gender Identity Male 04/23/2022 10:18 AM EDT Sexual Orientation Straight 04/23/2022 10 :18 AM EDT Last Filed Vital Signs Vital Sign Reading Time Taken Comments Blood Pressure 126/75 08/26/2024 9:46 AM EST Pulse 91 08/26/2024 9:46 AM EST Temperature 36.6 ??C (97.8 ??F) 08/26/2024 9:46 AM ES T Respiratory Rate 20 08/26/2024 9:46 AM EST Oxygen Saturation 95% 08/26/2024 9:46 AM EST Inhaled Oxygen Concentration - - Weight 82.6 kg (182 lb) 08/26/2024 9:46 AM EST Height 172.7 cm (5' 8 ) 08/26/2024 9:46 AM EST Body Mass Index 27.67 08/26/2024 9:46 AM EST Plan of Treatment Upcoming Encounters Date Type Department Care Team ([facility] st Contact Info) Description 09/24/2024 9:00 AM EDT Clinical Support [facility] [address] [place] [address] Reba Garcia, RN [address] [place] [address] Health Maintenance Due Date Last Done Comments CT Colonography 1961 Colonoscopy 1961 FIT 1961 FOBT 1961 HIV Screening 1961 Sigmoidoscopy 1961 Hepatitis C Screening 1979 Hepatitis A Vaccines (1 of 2 - Risk 2-dose series) 02/03/1980 Pneumococcal Vaccine: 50+ Years (1 of 1 - PCV) 2011 Depression Monitoring (PHQ-9) 02/26/2025 08/26/2024, 08/26/2024 Alcohol/Substance Use Screening 08/26/2025 08/26/2024 Depression Screening 08/26/2025 08/26/2024, 08/27/19 25 SDOH Screening 08/26/2025 08/26/2024 Tobacco Screening 08/26/2025 08/26/2024 Colorectal Cancer Screening 04/11/2026 FIT DNA/Cologuard 04/11/2026 04/11/2023 DTaP/Tdap/Td Vaccines (3 - Td or Tdap) 12/28/2027 12/27/2017, 10/19/2015, 04/24/2002 Lipid Panel 05/29/2029 05/29/2024, 11/23, 03/07/2021, Additional history exists Zoster Vaccines Completed 06/03/2019, 03/25/2019 RSV Patients and Patients Aged 60 years or older Completed 06/21/2023 RSV under 20 months Aged Out 06/22/2023 No longe r eligible based on patient's age to complete this topic COVID-19 Vaccine Completed 05/13/2024, , 10/13/2020 Influenza Vaccine Completed 05/13/2024, , 08/24/2021, Additional history exists HIB Vaccines Aged Out No longer eligi ble based on patient's age to complete this topic HPV Vaccines Aged Out No longer eligi ble based on patient's age to complete this topic Hepatitis B Vaccines Aged Out No long er eligible based on patient's age to complete this topic IPV Vaccines Aged Out No longer eligi ble based on patient's age to complete this topic Meningococcal Vaccine Aged Out No glynn calixto eligible based on patient's age to complete this topic Rotavirus Vaccines Aged Out No longer eligible based on patient's age to complete this topic Procedures Procedure Name Priority Date/Time Associated Diagnosis Comments LIPID PANEL, STANDARD Routine 05/29/2024 3:48 PM EST Primary hypertension TSH W/REFLEX TO FT4 Routine 05/29/2024 3 :48 PM EST Primary hypertension COMPREHENSIVE METABOLIC PANEL Routine 05/29/2024 3:48 PM EST Primary hypertension CBC WITH AUTO DIFFERENTIAL Routine 05/29/2024 3:48 PM EST Primary hypertension LAB COLOGUARD?? COLON CANCER SCREEN Routine 04/11/2023 3:30 AM EDT Screening for colon cancer from Last 3 Months or Most Recently Relevant to Health Maintenance Results * TSH W/Reflex to FT4 (05/29/2024 3:48 PM EST) TSH reflex Free T4 0.64 0.32 - 4.0 uIU/mL [facility] Blood Venous blood specimen / Unknown 05/29/2024 3:48 PM EST 05/29/2024 5:39 PM EST us Padmaja Davila MD LAB BLOOD ORDERABLES Final Result [facility] [address] [place] [address] [phone] * (ABNORMAL) CBC auto differential (05/29/2024 3:48 PM EST) White Blood Count 7.5 4.8 - 10.8 X10*3/uL [facility] Red Blood Count 5.09 4.60 - 5.80 X10*6/uL [facility] Hemoglobin 15.7 14.0 - 18.0 g/dl [facility] Hematocrit 45.7 42.0 - 52.0 % [facility] Mean Corpuscular Volume 89.8 80.0 - 98.0 fL [facility] Mean Corpuscular Hemoglobin 30.8 27.0 - 33.0 pg [facility] Mean Corpuscular HGB Conc 34.4 31.0 - 36.0 g/dl [facility] Red Cell Distribution Width 11.9 11.0 - 16.0 % [facility] Platelet Count 284 160 - 400 X10*3/uL [facility] Mean Platelet Volume 10.7 9.4 - 12.4 fL [facility] Neutrophils Percent Auto 58.8 45 - 73 % [facility] Imm Gran Pct Auto 0.4 0.0 - 0.4 % [facility] Lymphocytes Percent Auto 25.2 20 - 40 % [facility] Monocytes Percent Auto 11.6(H) 2 - 11 % [facility] Eosinophils Percent Auto 2.9 0 - 4 % [facility] Basophils Percent Auto 1.1 0 - 2 % [facility] NRBC Pct Auto 0.0 0.0 - 0.2 /100WBC [facility] Neutrophils Absolute Auto 4.4 2.0 - 8.3 x10*3/uL [facility] Imm Gran Abs Auto 0.03 0.00 - 0.03 X10*3/uL [facility] Lymphocytes Absolute Auto 1.9 1.2 - 4.9 X10*3/uL [facility] Monocytes Absolute Auto 0.9 0.1 - 1.2 X10*3/uL [facility] Eosinophils Absolute Auto 0.2 0.0 - 0.4 X10*3/uL [facility] Basophils Absolute Auto 0.1 0.0 - 0.2 X10*3/uL [facility] NRBC Abs Auto 0.000 0.0 - 0.012 X10*3/uL [facility] Blood Venous blood specimen / Unknown 05/29/2024 3:48 PM EST 05/29/2024 5:39 PM EST us Padmaja Davila MD LAB BLOOD ORDERABLES Final Result [facility] [address] [place] [phone] * (ABNORMAL) Lipid Panel, Standard (05/29/2024 3:48 PM EST) Triglycerides 229(H) <150 mg/dL [facility] Comment:Desirable Triglyceri de: less than 150 mg/dLBorderline High Triglyceride 150-199 mg/dLHigh Triglyceride: 200-499 mg/dLVery High Triglyceride: greater than or equal to 5OO mg/dL Cholesterol 148 <200 mg/dL [facility] Comment:Desirable Cholestero l: less than 200 mg/dLBorderline High Cholesterol: 200-239 mg/dLHigh Cholesterol: greater than 239 mg/dL LDL Cholesterol Calculated 68 <100 mg/dL [facility] Comment:Desirable LDL: less than 100 mg/dLNear Optimal/Above Optimal LDL: 110- 129 mg/dLBorderline High LDL: 130-159 mg/dLHigh LDL: 160-189 mg/dLVery High LDL: greater than or equal to 190 mg/dL HDL Cholesterol 35(L) >40 mg/dL [facility] Comment:Desirable HDL: great er than 40 mg/dL Note: This HDL assay may give artificially low results in patients with liver disease. Blood Venous blood specimen / Unknown 05/29/2024 3:48 PM EST 05/29/2024 5:39 PM EST us Padmaja Davila MD LAB BLOOD ORDERABLES Final Result [facility] [address] [place] [phone] * (ABNORMAL) Comprehensive Metabolic Panel (05/29/2024 3:48 PM EST) Sodium 139 135 - 145 mmol/L [facility] Potassium 3.8 3.3 - 5.1 mmol/L [facility] Chloride 101 96 - 108 mmol/L [facility] Carbon Dioxide 30(H) 22 - 29 mmol/L [facility] Anion Gap 12 12 - 20 [facility] Urea Nitrogen (BUN) 11 9 - 16 mg/dL [facility] Creatinine, Serum 0.90 0.5 - 1.4 mg/dL [facility] Estimated Glomerular Filt Rate >60 [facility] Comment:Chronic Kidney Disea se: Estimated GFR < 60 mL/min/1.43i5Omoyid Kidney Disease: Estimated GFR < 15 mL/min/1.73m2 Glucose 110 60 - 115 mg/dL [facility] Calcium 10.0 8.4 - 10.2 mg/dL [facility] Bilirubin, Total 0.4 0.0 - 1.0 mg/dL [facility] Aspartate Amino Transferase 21 5 - 37 U/L [facility] Alanine Aminotransferase 23 0 - 40 U/L [facility] Total Protein 7.5 6.5 - 8.0 g/dL [facility] Albumin Level 4.3 3.5 - 5.0 g/dL [facility] Alkaline Phosphatase 27(L) 39 - 117 U/L [facility] Blood Venous blood specimen / Unknown 05/29/2024 3:48 PM EST 05/29/2024 5:39 PM EST us Padmaja Davila MD LAB BLOOD ORDERABLES Final Result [facility] [address] [place] [address] [phone] * (ABNORMAL) Cologuard?? colon cancer screening (04/11/2023 3:30 AM EDT) Cologuard Result Positive( A) Negative 04/18/2023 3:48 AM EDT [employer] (CLIA #:[id number]) Comment: POSITIVE TEST RESULT. A positive Cologuard result should be followed with a colonoscopy or visual examination of the colon. The normal value (reference range) for this assay is negative. TEST DESCRIPTION: Composite algorithmic analysis of stool DNA-biomarkers with hemoglobin immunoassay. ?? Quantitative values of individual biomarkers are not reportable and are not associated with individual biomarker result reference ranges. Cologuard is intended for colorectal cancer screening of adults of either sex, 45 years or older, who are at average-risk for colorectal cancer (CRC). Cologuard has been approved for use by the U.S. FDA. The performance of Cologuard was established in a cross sectional study of average-risk adults aged 50-84. Cologuard performance in patients ages 45 to 49 years was estimated by sub-group analysis of near-age groups. Colonoscopies performed for a positive result may find as the most clinically significant lesion: colorectal cancer [4.0%], advanced adenoma (including sessile serrated polyps greater than or equal to 1cm diameter) [20%] or non- advanced adenoma [31%]; or no colorectal neoplasia [45%]. These estimates are derived from a prospective cross-sectional screening study of 10,000 individuals at average risk for colorectal cancer who were screened with both Cologuard and colonoscopy. (Jesus Hunt al, N Engl J Med 2014;370(14):7806-9670.) Cologuard may produce a false negative or false positive result (no colorectal cancer or precancerous polyp present at colonoscopy follow up). A negative Cologuard test result does not guarantee the absence of CRC or advanced adenoma (pre-cancer). The current Cologuard screening interval is every 3 years. ([place] [employer] Society and U.S. Multi-Society Task Force). Cologuard performance data in a 10,000 patient pivotal study using colonoscopy as the reference method can be accessed at the following location: www.[employer].com/results. Additional description of the Cologuard test process, warnings and precautions can be found at [email or web address]. Stool specimen (specimen) Rectal contents / Unknown 04/11/2023 3:30 AM EDT 04/12/2023 12:48 PM EDT Padmaja Davila MD LAB MOLECULAR DIAGNOSTICS O RDERABLES Final Result [employer] (CLIA #:[id number]) [address] [place] [address], from Last 3 Months or Most Recently Relevant to Health Maintenance Insurance MEDICARE [facility]LY [facility] Care Teams Duplicating Machine Servicer Relationship Specialty Start Date End Date Padmaja Davila MD [address] [place] [phone] PCP - General Internal Medicine 11/16/11
--- OUTSIDE RECORDS SUMMARY | 2024-08-26 12:40 | XMS_ITS | Encounter Summary ---
Author Organization [employer] Address [address] [facility] 7 [place] [address] Care Team Providers Care Lamp Stack Developer Name Role Phone Padmaja Davila MD Primary Care Provider [phone] Reason for Visit * Reason Onset Date Comments Med Refill 08/03/2024 Encounter Details Date Type Department Care Team ([facility] st Contact Info) Description 08/03/2024 Refill [facility] [address] [place] [address] Padmaja Davila MD [address] [place] [address] Chronic pain syndrome Social History Tobacco Use Types Packs/Day Years Used Date Smoking Tobacco: Former Cigarettes 1 43 Smokeless Tobacco: Never Comments:Now vape. Has been vaping x the last 3 weeks. One Cartridge last 5 to 7 days. Alcohol Use Standard Drinks/Week Comments Not Currently 0 (1 standard drink = 0.6 oz pur e alcohol) Depression Answer Date Recorded Patient Health Questionnaire-9 Score 11 01/15/2024 Patient Health Questionnaire-9 Score 11 01/15/2024 Last PHQ-9: Questionnaire Data Not on file 0 01/15/2024 Housing Stability Answer Date Recorded What is [...] Answer Date Recorded Patient Health Questionnaire-2 Score 1 01/15/2024 Sex and Gender Information Value Date Recorded Sex Assigned at Male 04/23/2022 10:18 AM EDT Legal Sex Male 10:18 AM EDT Gender Identity Male 04/23/2022 10:18 AM EDT Sexual Orientation Straight 04/23/2022 10 :18 AM EDT documented as of this encounter Plan of Treatment Upcoming Encounters Date Type Department Care Team ([facility] st Contact Info) Description 09/24/2024 9:00 AM EDT Clinical Support [facility] [address] [place] [address] Reba Garcia, CAROLINE [address] [place] [address] documented as of this encounter Visit Diagnoses Diagnosis Chronic pain syndrome documented in this encounter Additional Health Concerns Assessment Noted Time PHQ-9 Depression Total Score: 11 024 9:12 AM EDT documented as of this encounter Care Teams Lamp Stack Developer Relationship Specialty Start Date End Date Padmaja Davila MD [address] [place] [address] PCP - General Internal Medicine 11/16/11 documented as of this encounter
--- OUTSIDE RECORDS SUMMARY | 2024-08-26 12:40 | XMS_ITS | Encounter Summary ---
Author Organization [employer] Address [address] [place] [address] 7 [place] [address] Care Team Providers Care Senior Sas Programmer Name Role Phone Padmaja Davila MD Primary Care Provider [phone]- [phone] Reason for Visit * Reason Onset Date Comments Med Refill 08/24/2024 Encounter Details Date Type Department Care Team ([facility] st Contact Info) Description 08/24/2024 Refill [facility] [address] [place] [address] Padmaja Davila MD [address] [place] [address] Chronic pain syndrome Social History Tobacco Use [...] AM EDT documented as of this encounter Miscellaneous Notes * Telephone Encounter - Reba Garcia RN - 08/24/2024 3:39 PM EST TC back to pt. MANAGER MEAT NV r/s to 09/24/24 @9am. * Telephone Encounter - Ursula Bliss - 08/24/2024 11:44 AM EST TC from pt requesting medication refill. Medications needing refill : oxyCODONE-acetaminophen (Percocet) 5-325 MG tablet To be sent to: [facility] - [place] - [address] [facility] documented in this encounter Plan of Treatment Upcoming Encounters Date Type Department Care Team (Late st Contact Info) Description 09/24/2024 9:00 AM EDT Clinical Support [facility] [address] [place] [address] Reba Garcia RN [address] [place] [address] documented as of this encounter Visit Diagnoses Diagnosis Chronic pain syndrome documented in this encounter Additional Health Concerns Assessment Noted Time PHQ-9 Depression Total Score: 11 024 9:12 AM EDT documented as of this encounter Care Teams Senior Sas Programmer Relationship Specialty Start Date End Date Padmaja Davila MD [address] [place] [phone] PCP - General Internal Medicine 11/16/11 documented as of this encounter
--- OUTSIDE RECORDS SUMMARY | 2024-08-26 12:40 | XMS_ITS | Continuity of Care Document ---
Author Name [employer] Organization [employer] Care Team Providers Care Patch Setter Name Role Phone [employer] Unavailable Unavailable Problems Combined list of problems from Department of Defense and Veterans Affairs facilities. It does not include entries that were removed or entered in error. Problem Status Onset Date Problem Type Date of Resolution Comments Source Bipolar disorder Active Condition [facility] Chronic back pain Active Condition [facility] Chronic neck pain Active Condition [facility] Chronic post-traumatic stress disorder Active Condition October 23, 2017 Entered By: JULIANE FREEMAN Comment: CAPS5 administered 10/14/17 [facility] Colonoscopy Screening Active Condition [facility]pertension Active Condition [facility] Nicotine dependence Active Condition [facility] Diagnosis: ICD-10-CM F43.12 Post-traumatic stress disorder, chronic Active Diagnosis [facility] Medications Combined list of outpatient medications from Department of Defense and Veterans Affairs facilities.Medications provided include 1) outpatient medications from the last 15 months, and 2) patient-reported medications. Medication Details Route Status Patient Instructions Prescription Expires Prescription Number Last Dispense Date Ordering Provider Order Date Order Qty Source ACETAMINOPH EN 325MG TAB TAKE TWO TABLETS BY MOUTH FOUR TIMES A DAY ORAL ACTIVE TANGELA -JACOBLULA M 2016 [facility] CARISOPRODO L 350MG TAB TAKE ONE TABLET BY MOUTH THREE TIMES A DAY ORAL ACTIVE TANGELA -JACOB, LULA M 2016 [facility] DIVALPROEX NA 500MG TAB,SA TAKE THREE TABLETS BY MOUTH AT BEDTIME ORAL ACTIVE SRINI [place] 2017 [facility] IELD Immunizations Combined list of available immunizations from the Department of Defense and Veterans Affairs facilities. Immunization Series Date Given Administered By Site Reaction Lot Number CVX Code Drug Research Software Engineer Status Comments Source INFLUENZA, SEASONAL, INJECTABLE 2017 141 complet ed Site: Right Deltoid [place] TDAP 2017 115 complet ed Site: Right [facility] [place] INFLUENZA, SEASONAL, INJECTABLE 2016 141 complet ed Site: Right [facility]to[facility] [place] TD(ADULT) UNSPECIFIED FORMULATION 2001 139 complet ed [facility] Encounters Combined list of: 1) Encounters from Department of Veterans Affairs facilities going backup to the last 18 months, not all [place] inpatient encounters are included; 2) Encounters from the Department of Defense facilities going backup to 280 months. Location Location Details Encounter Type Encounter Number Reason For Visit Attending Provider ADM Date DC Date Status Disposition Source [facility] PT 30 MINUTES [id number] Diagnos is: ICD-10- CM F43.12 Post-tr aumatic stress disorde r, chronic MARINA LEMON 09/29 [facility] [place] [facility] [facility] Outpatient Encounter [id number] 02/22 [facility] Social History Combined list of available smoking, tobacco, and other social history from Department of Defense and Veterans Affairs facilities. Social History Type Response Date Comment Source Tobacco smoking status NHIS CO-TOBACCO USER EVERY DAY 07/23/2022 [facility] History of tobacco use CO-TOBACCO DOESNT USE WI 30 MIN WAKEUP 07/23/2022 [facility] History of tobacco use CURRENT SMOKER 11/07/2017 1 ppd [facility] History of tobacco use CURRENT SMOKER 05/13/2017 less than a pack a day [facility] History of tobacco use CURRENT SMOKER 03/27/2017 25 cigarettes daily [facility]
--- OUTSIDE RECORDS SUMMARY | 2024-08-26 12:40 | XMS_ITS | Encounter Summary ---
Author Organization [employer] Address [address] [place] [address] 7 [place] [address] Care Team Providers Care Diamond Sawer Name Role Phone aPdmaja Davila MD Primary Care Provider +1- [phone] Reason for Visit * Reason Onset Date Comments Med Refill 08/08/2024 Encounter Details Date Type Department Care Team ([facility] st Contact Info) Description 08/08/2024 Refill [facility] MED & PEDS [address] [place] [address] Padmaja Davila MD [address] [place] [address] Essential (primary) hypertension Social History Tobacco Use Types Packs/Day Years [...] Description 09/24/2024 9:00 AM EDT Clinical Support [facility] MED & PEDS [address] [place] [address] Reba Garcia, CAROLINE [address] [place] [address] documented as of this encounter Visit Diagnoses Diagnosis Essential (primary) hypertension Unspecified essential hypertension documented in this encounter Additional Health Concerns Assessment Noted Time PHQ-9 Depression Total Score: 11 024 9:12 AM EDT documented as of this encounter Care Teams Diamond Sawer Relationship Specialty Start Date End Date Padmaja Davila MD [address] [place] [address] PCP - General Internal Medicine 11/16/11 documented as of this encounter
--- OUTSIDE RECORDS SUMMARY | 2024-08-26 12:40 | XMS_ITS | Encounter Summary ---
Author Organization [employer] Address [address] [facility] 7 [place] [address] Care Team Providers Care Dental Equipment Installer And Servicer Name Role Phone Padmaja Davila MD Primary Care Provider +1- [phone] Reason for Visit * Reason Onset Date Comments Appointment Request 04/22/2023 Encounter Details Date Type Department Care Team ([facility] st Contact Info) Description 04/22/2023 Telephone [facility] MEDICINE [address] [place], [place] [phone] Padmaja Davila MD [address] [place] [address] Appointment Request Social History Tobacco Use Types Packs/Day Years [...] encounter Miscellaneous Notes * Telephone Encounter - Sabi Wilder - 04/22/2023 10:00 AM EDT Tc from pt requesting r/s 04/19/2023 appt cancel by provider. documented in this encounter Plan of Treatment Upcoming Encounters Date Type Department Care Team (Late st Contact Info) Description 09/24/2024 9:00 AM EDT Clinical Support [facility] MED & PEDS [address] [place] [address] Reba Garcia RN [address] [place] [address] documented as of this encounter Visit Diagnoses Not on filedocumented in this encounter Additional Health Concerns Assessment Noted Time PHQ-9 Depression Total Score: 6 12/12/19 23 9:45 AM EDT documented as of this encounter Care Teams Dental Equipment Installer And Servicer Relationship Specialty Start Date End Date Padmaja Davila MD [address] [place] [address] PCP - General Internal Medicine 11/16/11 documented as of this encounter
--- OUTSIDE RECORDS SUMMARY | 2024-08-26 12:40 | XMS_ITS | Encounter Summary ---
Author Organization [employer] Address [address] [facility] 7t [place] [address] Care Team Providers Care Rotary Surface Grinder Name Role Phone Padmaja Davila MD Primary Care Provider +1- [phone] Encounter Details Date Type Department Care Team (Latest Contact Info) Description 08/19/2024 Travel Social History Tobacco Use Types Packs/Day Years [...] Upcoming Encounters Date Type Department Care Team ([facility] st Contact Info) Description 09/24/2024 9:00 AM EDT Clinical Support [facility] MED & PEDS [address] [place] [address] Reba Garcia, CAROLINE [address] [place] [address] documented as of this encounter Visit Diagnoses Not on filedocumented in this encounter Additional Health Concerns Assessment Noted Time PHQ-9 Depression Total Score: 11 024 9:12 AM EDT documented as of this encounter Care Teams Rotary Surface Grinder Relationship Specialty Start Date End Date Padmaja Davila MD [address] [place] [address] PCP - General Internal Medicine 11/16/11 documented as of this encounter
--- OUTSIDE RECORDS SUMMARY | 2024-08-26 12:40 | XMS_ITS | Encounter Summary ---
Author Organization [employer] Address [address] [place] [address] 7 [place] [address] Care Team Providers Care Senior Mobile Web Developer Name Role Phone Padmaja Davila MD Primary Care Provider [phone]- [phone] Reason for Visit * Reason Comments Med Refill Encounter Details Date Type Department Care Team ([facility] st Contact Info) Description 04/03/2024 Refill [facility] CHC MED & PEDS [address] [place], [place] [phone] Padmaja Davila MD [address] [place] [address] Chronic pain syndrome Social History Tobacco Use [...] Upcoming Encounters Date Type Department Care Team ([facility] st Contact Info) Description 09/24/2024 9:00 AM EDT Clinical Support [facility] CHC MED & PEDS [address] [place] [address] Reba Garcia, CAROLINE [address] [place] [address] documented as of this encounter Visit Diagnoses Diagnosis Chronic pain syndrome documented in this encounter Additional Health Concerns Assessment Noted Time PHQ-9 Depression Total Score: 11 024 9:12 AM EDT documented as of this encounter Care Teams Senior Mobile Web Developer Relationship Specialty Start Date End Date Padmaja Davila MD [address] [place] [address] PCP - General Internal Medicine 11/16/11 documented as of this encounter
--- OUTSIDE RECORDS SUMMARY | 2024-08-26 12:40 | XMS_ITS | Encounter Summary ---
Author Organization [employer] Address [address] [facility] 7t [place] [address] Care Team Providers Care Commercial Property Administrator Name Role Phone Padmaja Davila MD Primary Care Provider +1- [phone] Reason for Visit * Reason Onset Date Comments Med Refill 11/11/2023 Encounter Details Date Type Department Care Team ([facility] st Contact Info) Description 11/11/2023 Telephone [facility] MEDICINE [address] [place], [place] [phone] Padmaja Davila MD [address] [place] [address] Med Refill Social History Tobacco Use Types Packs/Day Years [...] encounter Miscellaneous Notes * Telephone Encounter - Robby Parker - 11/11/2023 8:53 AM EDT TC from pt requesting medication refill. Medications needing refill : oxyCODONE-acetaminophen (Percocet) 5-325 MG tablet To be sent to: [facility] - [place], [place] - [address] [place] [address] documented in this encounter Plan of Treatment Upcoming Encounters Date Type Department Care Team (Late st Contact Info) Description 09/24/2024 9:00 AM EDT Clinical Support [facility] CHC MED & PEDS [address] [place] [address] Reba Garcia, CAROLINE 505 [place] [address] documented as of this encounter Visit Diagnoses Not on filedocumented in this encounter Additional Health Concerns Assessment Noted Time PHQ-9 Depression Total Score: 6 12/12/19 23 9:45 AM EDT documented as of this encounter Care Teams Commercial Property Administrator Relationship Specialty Start Date End Date Padmaja Davila MD 505 [facility] [address] PCP - General Internal Medicine 11/16/11 documented as of this encounter
--- OUTSIDE RECORDS SUMMARY | 2024-08-26 12:40 | XMS_ITS | Encounter Summary ---
Author Organization [employer] Address [address] [facility] 7t [place] [address] Care Team Providers Care Crossing Guard Name Role Phone Padmaja Davila MD Primary Care Provider +1- [phone] Encounter Details Date Type Department Care Team (Latest Contact Info) Description 08/24/2024 Travel Social History Tobacco Use Types Packs/Day [...] Upcoming Encounters Date Type Department Care Team ([facility] st Contact Info) Description 09/24/2024 9:00 AM EDT Clinical Support [facility] MED & PEDS [address] [place] [address] Reba Garcia, CAROLINE [address] [place] [address] documented as of this encounter Visit Diagnoses Not on filedocumented in this encounter Additional Health Concerns Assessment Noted Time PHQ-9 Depression Total Score: 11 024 9:12 AM EDT documented as of this encounter Care Teams Crossing Guard Relationship Specialty Start Date End Date Padmaja Davila MD [address] [place] [address] PCP - General Internal Medicine 11/16/11 documented as of this encounter
--- OUTSIDE RECORDS SUMMARY | 2024-08-26 12:40 | XMS_ITS | Encounter Summary ---
Author Organization [employer] Address [address] [place] [address] [place] [address] Care Team Providers Care Activities Leader Name Role Phone Padmaja Davila MD Primary Care Provider +1- [phone] Encounter Details Date Type Department Care Team ([facility] Contact Info) Description 03/19/2023 Orders Only [facility] MED & PEDS [address] [place], [place] [phone] Padmaja Davila MD [address] [place], [place] [phone] Screening for colon cancer Social History Tobacco Use Types Packs/Day Years Used Date Smoking Tobacco: Former Cigarettes 1 43 Smokeless Tobacco: Never Comments:Now vape. Has been vaping x the last 3 weeks. One Cartridge last 5 to 7 days. Alcohol Use Standard Drinks/Week Comments Not Currently 0 (1 standard drink = 0.6 oz pur e alcohol) Depression Answer Date Recorded Patient Health Questionnaire-9 Score 6 12/11/2022 Depression Answer Date Recorded Patient Health Questionnaire-2 Score 0 12/11/2022 Sex and Gender Information Value Date Recorded Sex Assigned at Male 04/23/2022 10:18 AM EDT Legal Sex Male 10:18 AM EDT Gender Identity Male 04/23/2022 10:18 AM EDT Sexual Orientation Straight 04/23/2022 10 :18 AM EDT documented as of this encounter Plan of Treatment Upcoming Encounters Date Type Department Care Team (Late Contact Info) Description 09/24/2024 9:00 AM EDT Clinical Support [facility] MED & PEDS [address] [place], [place] [phone] Reba Garcia, CAROLINE [address] [place] [phone] documented as of this encounter Procedures Procedure Name Priority Date/Time Associated Diagnosis Comments HEMATOXYLIN AND EOSIN STAIN Routine 08/22/2023 12:53 PM EST Screening for colon cancer LAB COLOGUARD?? COLON CANCER SCREEN Routine 04/11/2023 3:30 AM EDT Screening for colon cancer LAB COLOGUARD?? COLON CANCER SCREEN- Unsuccessful Attempt Routine 03/25/2023 4:00 AM EDT Screening for colon cancer documented in this encounter Results * Hematoxylin and Eosin Stain (08/22/2023 12:53 PM EST) 08/22/2023 12:5 3 PM EST 08/22/2023 1:28 PM EST [facility] LABS - 08/26/2023 10:12 AM EST ----- ------- Name: Lee Richey ? Age/Sex: 63/M [facility] 1960 [id number] [id number] ?? Attend Dr: Jose Velásquez MD ?Re08/22/23 ?Status: DEP SDC ? Location: HO.SSS ?Disch: ? ----- ------- SPEC : [id number] ? RECD: 08/22/234 ? STATUS: ??SOUT ? REQ NUM: [id number] ? LAWSON: 08/22/23-1253 ? SUBM DR: Joes Velásquez MD ? ENTERED: ??08/22/23 ?SP TYPE: Surgical ? OTHR DR: Padmaja Davila MD ? ORDERED: ??HE Stain/6, Gross Micro L4/2 ? Diagnosis ?? A. ??Colon, cecal polyp: ??Tubular adenoma; negative for high-grade dysplasia and ?? carcinoma. ? B. ??Colon, sigmoid, polyp: ??Tubular adenoma, completely excised; negative for high-grade ?? dysplasia and carcinoma. ?Clinical History Pre-Op Dx: ??Positive Cologuard Post-Op Dx: Colon polyps, diverticulosis, internal hemorrhoids ?Microscopic Description Microscopic sections reviewed. ? Material Received ?? A. Cecal polyp (Eleview used) ?? B. Sigmoid polyp ? Gross Description Received in 2 parts. Part A: ??Received in formalin labeled ?cecal polyp? is a 0.6 x 0.6 x 0.1-0.2 cm hayes-pink rectangular-papular tissue fragment, bisected and entirely submitted in a cassette labeled A. Part B: ??Received in formalin labeled ?sigmoid polyp? is a 0.5 cm hyperemic and congested, pink-red papular tissue fragment, submitted in toto in a cassette labeled B. CEDS Copies To: ?? Padmaja Davila MD ?? [address] ?? [place] [address] ? CONTINUED ON NEXT PAGE ----- ------- Name: Lee Richey ? Age/Sex: 63/M ? : 1960 Unit#: [id number] ?? Attend Dr: Jose Velásquez MD ?Re08/22/23 ?Status: DEP SDC ? Location: HO.SSS ?Disch: ? ----- ------- SPEC : [id number] ? RECD: 08/22/23-8 ? STATUS: ??SOUT ? REQ NUM: [id number] ? LAWSON: 08/22/23-1253 ? SUBM DR: Jose Velásquez MD ? ENTERED: ??08/22/23-5 ?SP TYPE: Surgical ? OTHR DR: Padmaja Davila MD ? ORDERED: ??HE Stain/6, Gross Micro L4/2 ? Copies To: ??(Continued) ?? Jose Velásquez MD ?? [address] [facility] ?? [place] [address] ?? [phone] ----- ------- Signed (signature on file) Berenice Arriola 08/26/23 1012 ? ----- ------- ? END OF REPORT ? us Generic External Data Provider LAB BLOOD ORDERAB LES Final Result Performing Organization Address City/State/[facility] Co de Phone Number [facility] [address] [place] [address] [phone] * (ABNORMAL) Cologuard?? colon cancer screening (04/11/2023 3:30 AM EDT) Cologuard Result Positive( A) Negative 04/18/2023 3:48 AM EDT [facility] (CLIA #:[id number]) Comment: POSITIVE TEST RESULT. A positive Cologuard [...] (Jesus Hunt al, N Engl J Med 2014;370(14):0255-2253.) Cologuard may produce a false negative or false positive result (no colorectal cancer or precancerous polyp present at colonoscopy follow up). A negative Cologuard test result does not guarantee the absence of CRC or advanced adenoma (pre-cancer). The current Cologuard screening interval is every 3 years. ([place] [employer] Society and U.S. Multi-Society Task Force). Cologuard performance data in a 10,000 patient pivotal study using colonoscopy as the reference method can be accessed at the following location: www.[employer].Ulmon/results. Additional description of the Cologuard test process, warnings and precautions can be found at www.cologuard.com. Stool specimen (specimen) Rectal contents / Unknown 04/11/2023 3:30 AM EDT 04/12/2023 12:48 PM EDT Padmaja Davila MD LAB MOLECULAR DIAGNOSTICS O RDERABLES Final Result Performing Organization Address [facility] Co de Phone Number [facility] (CLIA #:[id number]) [address] [place] [address], [place] [phone] * Cologuard?? colon cancer screening (03/25/2023 4:00 AM EDT) - Unsuccessful Attempt Cologuard Result No Result Obtained 3 N/A 04/04/2023 10:01 PM EDT [facility] (CLIA #:[id number]) Comment:There was insufficie nt stool DNA detected to produce a valid Cologuard result. The patient will be contacted to initiate a new sample collection. Stool specimen (specimen) 03/25/2023 4:00 AM EDT 03/27/2023 1:07 AM EDT us Padmaja Davila MD LAB MOLECULAR DIAGNOSTICS O RDERABLES Final Result Performing Organization Address [facility] Co de Phone Number [facility] (CLIA #:[id number]) [address] [place] [address], [place] [phone] documented in this encounter Visit Diagnoses Diagnosis Screening for colon cancer Special screening for malignant neoplasms, colon documented in this encounter Additional Health Concerns Assessment Noted Time PHQ-9 Depression Total Score: 6 12/12/19 23 9:45 AM EDT documented as of this encounter Care Teams Activities Leader Relationship Specialty Start Date End Date Padmaja Davila MD [address] [place] [address] PCP - General Internal Medicine 11/16/11 documented as of this encounter
--- OUTSIDE RECORDS SUMMARY | 2024-08-26 12:40 | XMS_ITS | Encounter Summary ---
Author Organization [employer] Address [address] [facility] 7t [place] [address] Care Team Providers Care Afternoon Nanny Name Role Phone Padmaja Davila MD Primary Care Provider +1- [phone] Reason for Visit * Reason Comments Med Refill Encounter Details Date Type Department Care Team (Late st Contact Info) Description 08/03/[address] [facility] MEDICINE [address] [place] [address] Padmaja Davila MD [address] [place] [address] Chronic pain syndrome Social History Tobacco Use [...] Description 09/24/2024 9:00 AM EDT Clinical Support [facility] CH[facility] MED & PEDS [address] [place] [address] Reba Garcia, CAROLINE [address] [place] [address] documented as of this encounter Visit Diagnoses Diagnosis Chronic pain syndrome documented in this encounter Additional Health Concerns Assessment Noted Time PHQ-9 Depression Total Score: 11 024 9:12 AM EDT documented as of this encounter Care Teams Afternoon Nanny Relationship Specialty Start Date End Date Padmaja Davila MD [address] [place] [address] PCP - General Internal Medicine 11/16/11 documented as of this encounter
--- OUTSIDE RECORDS SUMMARY | 2024-08-26 12:40 | XMS_ITS | Encounter Summary ---
Author Organization [employer] Address [address] [facility] 7 [place] [address] Care Team Providers Care Wood Grinder Name Role Phone Padmaja Davila MD Primary Care Provider +1 [phone] Encounter Details Date Type Department Care Team (Latest Contact Info) Description 08/26/2024 Travel Social History Tobacco Use Types Packs/Day [...] housing situation today? I have ayla arenas 08/26/[address] you li [...] Description 09/24/2024 9:00 AM EDT Clinical Support [facility] CHC MED & PEDS [address] [place] [address] Reba Garcia, CAROLINE [address] [place] [address] documented as of this encounter Visit Diagnoses Not on filedocumented in this encounter Additional Health Concerns Assessment Noted Time PHQ-9 Depression Total Score: 13 025 10:06 AM EST documented as of this encounter Care Teams Wood Grinder Relationship Specialty Start Date End Date Padmaja Davila MD [address] [place] [address] PCP - General Internal Medicine 11/16/11 documented as of this encounter
--- OUTSIDE RECORDS SUMMARY | 2024-08-26 12:40 | XMS_ITS | Encounter Summary ---
Author Organization [employer] Address [address] [place] [address] 7 [place] [address] Care Team Providers Care Channel Lip Wetter Name Role Phone Padmaja Davila MD Primary Care Provider [phone]- [phone] Reason for Visit * Reason Comments Follow-up Encounter Details Date Type Department Care Team ([facility] Contact Info) Description 08/26/2024 9:45 AM EST Office Visit [facility] MED [facility] PEDS [address] [place], [place] [phone] Padmaja Davila MD [address] [place] [address] Anxiety state (Primary Dx); Primary hypertension; Hypertriglyceridemia; Dietary counseling; Exercise counseling; Overweight Social History Tobacco Use Types Packs/Day Years [...] AM EDT documented as of this encounter Last Filed Vital Signs Vital Sign Reading [...] Mass Index 27.67 08/26/2024 9:46 AM EST documented in this encounter Progress Notes * Padmaja Davila MD - 08/26/2024 9:45 AM EST Subjective Patient ID: Lee Richey is a 64 y.o. male who presents for Follow-up. HPI Pt is overall feeling well. Reports his son around that time last year. Denies feeling depressed. No SI/HI. Patient Active Problem List Diagnosis Anxiety disorder in mother affecting childbirth Anxiety state Backache Cervical disc disorder Chondromalacia Depressive disorder Displacement of lumbar intervertebral disc without myelopathy Pain in limb Hypertensive disorder Intervertebral disc protrusion Nicotine dependence Old tear of medial meniscus Current Outpatient Medications on File Prior to Visit Medication Sig Dispense Refill ibuprofen 800 MG tablet TAKE ONE TABLET TWICE DAILY NEEDED FOR PAIN 60 tablet 1 lisinopril-hydroCHLOROthiazide 10-12.5 MG tablet Take 1 tablet by mouth Once per day. 90 tablet 1 oxyCODONE-acetaminophen (Percocet) 5-325 MG tablet TAKE ONE TABLET EVERY 6 HOURS NEEDED 84 tablet 0 oxyCODONE-acetaminophen (Percocet) 5-325 MG tablet TAKE ONE TABLET EVERY 6 HOURS NEEDED 84 tablet 0 oxyCODONE-acetaminophen (Percocet) 5-325 MG tablet Take 1 tablet by mouth every 6 (six) hours for 21 days. 1 tables every 6 hours as needed 84 tablet 0 [DISCONTINUED] oxyCODONE-acetaminophen (Percocet) 5-325 MG tablet Take 1 tablet by mouth every 6 (six) hours for 21 days. 1 tables every 6 hours as needed 84 tablet 0 No current facility-administered medications on file prior to visit. No Known Allergies Review of Systems Constitutional: Negative for activity change, appetite change, chills and diaphoresis. HENT: Negative for dental problem, drooling and ear discharge. Eyes: Negative for pain and itching. Respiratory: Negative for cough, choking and chest tightness. Cardiovascular: Negative for palpitations and leg swelling. Gastrointestinal: Negative for abdominal pain, anal bleeding and blood in stool. Endocrine: Negative for cold intolerance and heat intolerance. Genitourinary: Negative for flank pain, frequency and genital sores. Musculoskeletal: Negative for back pain. Neurological: Negative for light-headedness, numbness and headaches. Psychiatric/Behavioral: Negative for agitation, confusion and decreased concentration. Objective BP 126/75 (BP Location: Left arm, Patient Position: Sitting, BP Cuff Size: Adult) Pulse 91 Temp97.8 ??F (36.6 ??C) (Oral) Resp 20 Ht 5' 8 (1.727 m) Wt 182 lb (82.6 kg) SpO2 95% BMI 27.67 kg/m?? Physical Exam Constitutional: General: He is not in acute distress. Appearance: Normal appearance. He is not ill-appearing, toxic-appearing or diaphoretic. Cardiovascular: Rate and Rhythm: Normal rate. Pulmonary: Effort: Pulmonary effort is normal. Breath sounds: Normal breath sounds. Neurological: General: No focal deficit present. Mental Status: He is alert. Psychiatric: Mood and Affect: Mood normal. Assessment/Plan Diagnoses and all orders for this visit: Anxiety state Comments: Pt feels stable Declines needing help. Primary hypertension Comments: stable No change in management DASH diet. Hypertriglyceridemia Comments: regular exercises: goal 150 minutes a week. Dietary counseling Exercise counseling Overweight Dietary Recommendations: Fruits, vegetables, whole grains, protein foods, and fat-free or low-fat dairy products are healthychoices. Eat different types of protein foods in your diet. This can include seafood, lean meats, poultry, beans, peas, lentils, nuts, seeds, soy products, and eggs. Limit foods and beverages higher in added sugars, saturated fat, and sodium. Exercise Recommendations: At least 150 minutes of moderate-intensity physical activity per week, or an equivalent combinationof moderate- and vigorous-intensity activity The order for Hep C was printed and given to pt to get the test done. He will be contacted w/ results. documented in this encounter Plan of Treatment Upcoming Encounters Date Type Department Care Team (Late st Contact Info) Description 09/24/2024 9:00 AM EDT Clinical Support [facility] MED [facility]S [address] [place] [address] Reba Garcia RN [address] [place] [address] documented as of this encounter Visit Diagnoses Diagnosis Anxiety state- Primary Anxiety state, unspecified Primary hypertension Unspecified essential hypertension Hypertriglyceridemia Pure hyperglyceridemia Dietary counseling Dietary surveillance and counseling Exercise counseling Overweight documented in this encounter Additional Health Concerns Assessment Noted Time PHQ-9 Depression Total Score: 13 025 10:06 AM EST documented as of this encounter Care Teams Channel Lip Wetter Relationship Specialty Start Date End Date Padmaja Davila MD [address] [place] [address] PCP - General Internal Medicine 11/16/11 documented as of this encounter
--- OUTSIDE RECORDS SUMMARY | 2024-08-26 12:40 | XMS_ITS | Encounter Summary ---
Author Organization [employer] Address [address] [facility] 7t [place] [address] Care Team Providers Care Ocean Freight Agent Name Role Phone Padmaja Davila MD Primary Care Provider [phone]- [phone] Reason for Visit * Reason Onset Date Comments Nurse Triage 08/27/2023 Encounter Details Date Type Department Care Team ([facility] st Contact Info) Description 08/27/2023 Telephone [facility] MEDICINE [address] [place], [place] [phone] Padmaja Davila MD [address] [place] [address] Nurse Triage Social History Tobacco Use Types Packs/Day Years [...] is your housing situation today? I have yala arenas 04/11/[address] you [...] encounter Miscellaneous Notes * Telephone Encounter - Gilma Cristina RN - 08/29/2023 12:47 PM EST Placed call to pt regarding message below. Pt agrees to [facility] appt tomorrow with PCP. * Telephone Encounter - Areli Wilburn RN - 08/27/2023 8:12 AM EST Call to Lee Richey, reports having increased anxiety due to recent loss of his son. Per pt currently in [place] and will be flying back to [place] on . Pt wants appt with PCP to discuss thisincreased anxiety and feelings of sadness related to grief. Pt very calm on phone but did become tearful upon speaking about his son. Pt provided with some coping skills for grief. Pt advised no appts with PCP this week. On Saturday. Have [facility] schedule but currently blocked. Will send to PCP and team to review to see if booking before schedule opens is an option. PT advised if able to call back on after returning if no call back from team. Pt agrees. Protocol Used: Depression (Adult) Protocol-Based Disposition: Home Care Override (Final) Disposition: Discuss with PCP and Callback by Nurse Today Override Reason: Desired specific provider Positive Triage Question: * Recent of a loved one * All higher-acuity triage questions were negative Care Advice Discussed: * Reasons To Call Back - Sadness or depression symptoms persist over 2 weeks - You become worse * Telephone Encounter - Robby Parker - 08/27/2023 8:07 AM EST Symptom: Anxiety or Panic Attack Outcome: Schedule an urgent appointment (within 4 hours) or talk to a nurse or provider soon Reason: Anxiety keeps from normal daily activities (such as school or work) The caller accepted this outcome Patient is currently out of town due to a loss in the family will return by 08/29 documented in this encounter Plan of Treatment Upcoming Encounters Date Type Department Care Team (Late st Contact Info) Description 09/24/2024 9:00 AM EDT Clinical Support [facility] MED & PEDS [address] [place] [address] Reba Garcia RN [address] [place] [address] documented as of this encounter Visit Diagnoses Not on filedocumented in this encounter Additional Health Concerns Assessment Noted Time PHQ-9 Depression Total Score: 6 12/12/19 9:45 AM EDT documented as of this encounter Care Teams Ocean Freight Agent Relationship Specialty Start Date End Date Padmaja Davila MD [address] [place] [address] PCP - General Internal Medicine 11/16/11 documented as of this encounter
--- OUTSIDE RECORDS SUMMARY | 2024-08-26 12:40 | XMS_ITS | Encounter Summary ---
Author Organization [employer] Address [address] [facility] 7t [place] [address] Care Team Providers Care Retail Custodial Associate Name Role Phone Padmaja Davila MD Primary Care Provider [phone] Encounter Details Date Type Department Care Team (Latest Contact Info) Description 08/06/2024 Travel Social History Tobacco Use Types Packs/Day [...] Upcoming Encounters Date Type Department Care Team ([facility] st Contact Info) Description 09/24/2024 9:00 AM EDT Clinical Support [facility] MED & PEDS [address] [place] [address] Reba Garcia, CAROLINE [address] [place] [address] documented as of this encounter Visit Diagnoses Not on filedocumented in this encounter Additional Health Concerns Assessment Noted Time PHQ-9 Depression Total Score: 11 024 9:12 AM EDT documented as of this encounter Care Teams Retail Custodial Associate Relationship Specialty Start Date End Date Padmaja Davila MD [address] [place] [address] PCP - General Internal Medicine 11/16/11 documented as of this encounter
--- OUTSIDE RECORDS SUMMARY | 2024-08-26 12:40 | XMS_ITS | Encounter Summary ---
Author Organization [employer] Address [address] [facility] 7 [place] [address] Care Team Providers Care Raw Cheese Worker Name Role Phone Padmaja Davila MD Primary Care Provider [phone]- [phone] Encounter Details Date Type Department Care Team ([facility] st Contact Info) Description 04/03/2024 Orders Only [facility] MED & PEDS [address] [place], [place] [phone] Padmaja Davila MD [address] [place], [place] [phone] Chronic pain syndrome Social History Tobacco Use [...] Description 09/24/2024 9:00 AM EDT Clinical Support [facility] MED & PEDS [address] [place] [address] Reba Garcia RN [address] [place] [address] documented as of this encounter Visit Diagnoses Diagnosis Chronic pain syndrome documented in this encounter Additional Health Concerns Assessment Noted Time PHQ-9 Depression Total Score: 11 024 9:12 AM EDT documented as of this encounter Care Teams Raw Cheese Worker Relationship Specialty Start Date End Date Padmaja Davila MD [address] [place] [address] PCP - General Internal Medicine 11/16/11 documented as of this encounter
--- OUTSIDE RECORDS SUMMARY | 2024-08-26 12:40 | XMS_ITS | Encounter Summary ---
Author Organization [employer] Address [address] [facility] 7 [place] [address] Care Team Providers Care Expense Clerk Name Role Phone Padmaja Davila MD Primary Care Provider [phone]- [phone] Reason for Visit * Reason Onset Date Comments Med Refill 06/01/2024 Encounter Details Date Type Department Care Team ([facility] st Contact Info) Description 06/01/2024 Telephone [facility] MEDICINE [address] [place], [place] [phone] Padmaja Davila MD [address] [place] [address] Med Refill Social History Tobacco Use Types [...] encounter Miscellaneous Notes * Telephone Encounter - Dakotah Apodaca - 06/01/2024 9:11 AM EST TC from pt requesting medication refill. Medications needing refill : oxyCODONE-acetaminophen (Percocet) 5-325 MG tablet To be sent to: [facility] documented in this encounter Plan of Treatment Upcoming Encounters Date Type Department Care Team ([facility] st Contact Info) Description 09/24/2024 9:00 AM EDT Clinical Support [facility] MED & PEDS [address] [place] [address] Reba Garcia RN [address] [place] [address] documented as of this encounter Visit Diagnoses Not on filedocumented in this encounter Additional Health Concerns Assessment Noted Time PHQ-9 Depression Total Score: 11 024 9:12 AM EDT documented as of this encounter Care Teams Expense Clerk Relationship Specialty Start Date End Date Padmaja Davila MD [address] [place] [address] PCP - General Internal Medicine 11/16/11 documented as of this encounter
--- OUTSIDE RECORDS SUMMARY | 2024-08-26 12:40 | XMS_ITS ---
Author Name [employer] [place] [employer] [place] [facility] [employer] [employer] [place] Address [address] [place] [address] Care Team Providers Care Environmental Engineering Intern Name Role Phone IGNACIO MIKE Primary Care Provider Unavailabl e Insurance Providers: All historical and current Section Date Range: From patient's date of to the date document was created. This section includes the names of all active insurance providers for the patient. Insurance Provider Type of Coverage Plan Name Start of Policy Coverage End of Policy Coverage Group Number Member ID Insurance Provider's Telephone Number Policy Bah's Name Patient's Relationship to Policy Bah MEDICARE (WNR) MEDICARE (M) PART A Apr 24, 2009 PART A [id number] [phone] [id number] [employer] PATIENT MEDICARE (WNR) MEDICARE (M) PART A Apr 24, 2009 PART A [id number] [employer] PATIENT Selected Encounter This section includes the information on record at [place] for the Encounter. Date/Time Encounter Type Encounter Description Reason Provider Source Sep 30, 2023 09:30 AM PSYTX W PT 30 MINUTES [facility] ICD-10-CM F43.12 Post-traumatic stress disorder, chronic JHONY LEMON IHPauly Encounter Template Text not used by CT Assessments - Encounter Diagnoses This section includes the primary and secondary diagnoses documented for the Encounter. Date/Time Primary/Secondary Diagnosis Diagnosis Name Provider Source Oct 18, 2023 01:17 PM PRIMARY Post-traumatic stress disorder, chronic TAMAR ROBLERO [facility] Social History: Smoking Status (Most current) and Tobacco Use (All prior to encounter date) This section includes the most current, and the historical, smoking and tobacco- related health factors from the [place] facility where the Encounter took place. Current Smoking Status This section includes the most current smoking, or tobacco-related health factor, from the [place] facility where the Encounter took place. Date/Time Current Smoking Status Comment Facil ity Jul 23, 2022 09:00 AM VA-TOBACCO USER EVERY DAY [facility] Tobacco Use History This section includes a history of the smoking, or tobacco-related health factors, that were collected on or before the date of the Encounter. The data comes from the [place] facility where the Encounter took place. Date/Time Smoking Status/Tobacco Use Comment F acility Jul 23, 2022 09:00 AM VA-TOBACCO USE 30 YEARS OR MORE [facility] Jul 23, 2022 09:00 AM VA-TOBACCO USE ADVICE [facility] Jul 23, 2022 09:00 AM VA-TOBACCO USE MACHINE CLOTHING REPLACER NO [facility] Jul 23, 2022 09:00 AM VA-TOBACCO USE MED NO [facility] Jul 23, 2022 09:00 AM VA-TOBACCO USER EVERY DAY [facility] November 07, 2017 11:33 AM CURRENT SMOKER 1 ppd [facility] November 07, 2017 11:33 AM V1-PT NOT INTEREST ED IN QUIT TOBACCO USE [facility] Encounter Notes: All associated encounter notes This section contains the clinical notes associated to the Encounter. Date/Time Encounter Note(s) Provider Source Sep 30, 2023 11:51 AM SOCIAL WORK NOTE: LOCAL TITLE: SOCIAL WORK NOTE STANDARD TITLE: SOCIAL WORK NOTE DATE OF NOTE: SEP 30, 2023@11:51 ENTRY DATE: SEP 30, 2023@11:51:14 AUTHOR: MARY LEMON COSIGNER: URGENCY: STATUS: COMPLETED SOCIAL WORK NOTE Has ADDENDA Date of session: 09/30/2023 Duration of session: 30 min Diagnosis: Grief & Loss Presenting Problem ([place] report): I lost my son on August 22 and I needed to talk to someone. Course of Session: Kaya presented to walk-in clinic today to talk to someone about recent in his life. Kaya reported that his son on August 23, 2023 from medical issues related to Chronic Alcohol Use Disorder. shared story and thoughts and feeling related to the loss of his son and he own journey with sobriety (11 yrs.). He also shared that his is battling cancer. Discussed this stressor as well. was very concerned about how he is coping with the loss of his son. Is how I am feeling normal? reported sleep and appetite disturbance but he is eating at each meal and he is going to work with his PCM on something to help him sleep. He went on to report getting rushes of emotions and tears about every 20 minutes daily. This ghost writer normalized his grief and loss and encouraged him to continue reaching out to others for support, continue taking care of himself (eating, sleeping, fishing, etc.) and understand that everyone is different related to grief and loss. One person's journey is not the same as another and there is not right way and no set timeline. Encouraged to allow himself to feel any feeling he experiences - no right/wrong feelings. Discussed journalling, writing letter to his son, and other behavioral techniques he can use to process thoughts & feelings. He is looking into a grief counselor for he and his to come to the home. Looking on-line and through [employer]. He is going to start there for help and [facility]. * Gave information about Kaya's Crisis Line/988 Specific mental health/clinical interventions: Active and reflective listening, supportive counseling, validation/normalizing Mental Status/Clinical Impression: 1. Appearance (grooming, attire, apparent age) within normal limits: Yes 2. Thought content was organized and goal directed: Yes 3. Speech was coherent and unimpaired: Yes 4. Affect was appropriate and unremarkable: Yes 5. Demeanor was calm, with no signs of agitation or restlessness: Yes 6. Problems with sleep or appetite reported: Yes - but is eating regular meals despite having decreased appetite; taking medication to help sleep prescribed by his community PCM. 7. Psychosis (hallucinations or Delusions): No/denies 8. Suicidal Ideation or Homicidal ideation (frequency, intent, plan, means): No/denies Client's response to interventions: Thankful for information, a place to talk and ask questions. I feel so much better just having talked to you. Plans, next steps, and/or clinical decisions: plans to look online for groups for grief & loss and also through [employer]. [facility] does not have group for grief and loss. Continue to utilize supports as needed. Continue to use self-care. Reach out to filter changing technician as needed. WIC available if needed. Date of next planned contact: [facility] can utilize WIC as needed. /rock/ MARY LEMON LCSW CLINICAL RADIUS CORNER MACHINE OPERATOR Signed: 10/03/2023 11:44 10/03/2023 ADDENDUM STATUS: COMPLETED Suicide Screen: C-SSRS Screening [place]-Suicide Severity Rating Scale (C-SSRS Screener) 1. Over the past month, have you wished you were or wished you could go to sleep and not wake up? No 2. Over the past month, have you had any actual thoughts of killing yourself? No 3. Over the past month, have you been thinking about how you might do this? Response not required due to responses to other questions. 4. Over the past month, have you had these thoughts and had some intention of acting on them? Response not required due to responses to other questions. 5. Over the past month, have you started to work out or worked out the details of how to kill yourself? Response not required due to responses to other questions. 6. If yes, at any time in the past month did you intend to carry out this plan? Response not required due to responses to other questions. 7. In your lifetime, have you ever done anything, started to do anything, or prepared to do anything to end your life (for example, collected pills, obtained a gun, gave away valuables, went to the roof but didn't jump)? No 8. If YES, was this within the past 3 months? Response not required due to responses to other questions. /rock/ MARY LEMON LCSW CLINICAL RADIUS CORNER MACHINE OPERATOR Signed: 10/03/2023 14:30 MARY LEMON CNTRL [facility]N [facility]
--- OUTSIDE RECORDS SUMMARY | 2024-08-26 12:40 | XMS_ITS | Encounter Summary ---
Author Organization [employer] Address [address] [place] [address] [place] [address] Care Team Providers Care Customer Service Analyst Name Role Phone Padmaja Davila MD Primary Care Provider [phone]- [phone] Reason for Visit * Reason Onset Date Comments Appointment Request 08/24/2024 Encounter Details Date Type Department Care Team ([facility] Contact Info) Description 08/24/2024 Telephone [facility] MED & PEDS [address] [place], [place] [phone] Padmaja Davila MD [address] [place] [address] Appointment Request Social History Tobacco Use Types [...] encounter Miscellaneous Notes * Telephone Encounter - Yuri Shankar - 08/24/2024 3:19 PM EST Pt returning call for ACCOUNTING CONSULTANT scheduling * Telephone Encounter - Reba Garcia RN - 08/24/2024 12:56 PM EST TC back to pt regarding message below. No answer. Lvm for pt to c/b. * Telephone Encounter - Ursula Bliss - 08/24/2024 11:45 AM EST Tc from pt requesting to r/s ACCOUNTING CONSULTANT appt. documented in this encounter Plan of Treatment Upcoming Encounters Date Type Department Care Team (Late st Contact Info) Description 09/24/2024 9:00 AM EDT Clinical Support [facility]ED[facility] [address] [place] [address] Reba Garcia, RN [address] [facility] [place] [address] documented as of this encounter Visit Diagnoses Not on filedocumented in this encounter Additional Health Concerns Assessment Noted Time PHQ-9 Depression Total Score: 11 024 9:12 AM EDT documented as of this encounter Care Teams Customer Service Analyst Relationship Specialty Start Date End Date Padmaja Davila MD [address] [place] [address] PCP - General Internal Medicine 11/16/11 documented as of this encounter
[2024-08-27 09:00] LABS: ~Hepatitis C Antibody Nonreactive (Nonreactive)
== END 2024-08-26 10:38 | disposition home or self-care (01) ==
LOC: HO.CHCLDS 10:37
PROVIDERS: Visit Provider Internal Medicine
DX: F32.A Depression, unspecified (principal); I10 Essential (primary) hypertension
CPT/HCPCS: 36415; 86803

== ENCOUNTER 2025-04-15 09:32 | Outpatient (REF) | payer MEDICARE, MEDICAID, SELFPAY ==
--- NOTE | ~2025-04-15 | CT_ITS ---
EXAMINATION: CT LUNG SCREENING HISTORY: F17.210 - Nicotine dependence, cigarettes, uncomplicated TECHNIQUE: Low dose axial images were obtained from the sternal notch to upper abdomen without IV contrast per standard departmental protocol. Sagittal and coronal reformatted images were also obtained and reviewed. One or more of the following techniques was used for dose reduction: Automated exposure control, adjustment of the mA and/or kV according to patient size, use of iterative reconstruction technique. DLP: 58 mGy-cm COMPARISON: Comparison is made with the prior examination dated 01/06/2024. FINDINGS: Lung nodules: There are punctate nodules right upper lobe (series 4, image 78) and in the left upper lobe (series 4, image 42). No suspicious pulmonary nodules are identified. Emphysema: moderate Coronary Calcification: moderate Aortic Arch Calcification: mild Potentially Significant Incidentals : none Additional Chest Findings: There is no pleural or pericardial effusion. No mediastinal or axillary lymphadenopathy is identified. Visualized upper abdomen: The visualized portions of the liver, spleen, and adrenals have an unremarkable unenhanced appearance. CT/CT lung screening IMPRESSION: No suspicious pulmonary nodules are identified. LUNG-RADS ASSESSMENT: Lung-RADS 2: Benign MANAGEMENT: Continue annual screening with LDCT in 12 months Category S: N/A Electronically signed by: Moisés Payne MD 04/15/2025 10:16 AM EDT
== END 2025-04-15 09:33 | disposition home or self-care (01) ==
LOC: HO.CT 09:32
PROVIDERS: PCP Internal Medicine; Visit Provider Physician Assistant Medical
DX: Z12.2 Encounter for screening for malignant neoplasm of respiratory organs (principal); F17.210 Nicotine dependence, cigarettes, uncomplicated
CPT/HCPCS: 71271

== ENCOUNTER → 2025-04-15 09:34 | Outpatient (BNV) | payer MEDICARE, MEDICAID, SELFPAY | PROVIDERS: PCP Internal Medicine; Visit Provider Radiology Diagnostic Radiology | DX: F17.210 Nicotine dependence, cigarettes, uncomplicated (principal) | CPT/HCPCS: 71271 ==